=== PATIENT | female | born 1995 | race Caucasian/White ===

== ENCOUNTER 2016-07-29 04:11 | Outpatient (CLI) | payer OTHER | END 2016-07-29 04:12 | disposition home or self-care (01) | LOC: LAB.R 04:11 | PROVIDERS: ATTEND Physician Assistant Medical | DX: J03.90 Acute tonsillitis, unspecified (principal) | CPT/HCPCS: 87070 ==

== ENCOUNTER 2017-07-17 15:42 | Emergency (ER) | payer OTHER ==
[2017-07-17 15:51] VITALS: BP 141/84
[2017-07-17] MEDS ORDERED: DEXAMETHASONE 10 MG/ML VIAL PO STA (16:02)
--- NOTE | 2017-07-17 16:05 | ED Physician Documentation ---
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 She does not recall anything specific that she did overuse her muscles she did help her fianc moved some boxes out about 5 days before this pain started. She fell yesterday the pain was somewhat better today it is worse. She is not having numbness or tingling distally. Review of Systems Constitutional: denies: Fever Eyes: denies: Decreased vision Ears: denies: Drainage/discharge Nose: denies: Congestion Throat: denies: Sore throat Cardiac: denies: Chest pain / pressure Respiratory: denies: Dyspnea, Cough GI: denies: Abdominal Pain, Nausea, Vomiting : denies: Dysuria Skin: denies: Rash Musculoskeletal: reports: Neck pain, Back pain. denies: Extremity pain, Extremity swelling Neurologic: denies: Generalized weakness, Focal weakness PD PAST MEDICAL HISTORY - Past Medical History Past Medical History: Yes Respiratory: Asthma - Past Surgical History Past Surgical History: No - Present Medications Home Medications: Ambulatory Orders Medication Instructions Recorded Confirmed Albuterol Sulf [Ventolin Hfa 0 puffs 07/17/17 Inhaler] Cyclobenzaprine [Flexeril] 10 mg PO TID PRN #20 tablet 07/17/17 HYDROcod/ACETAM 5/325 [[place] 5/325] 1 - 2 ea PO Q6H PRN #15 tablet 07/17/17 - Allergies Allergies/Adverse Reactions: Allergies Allergy/AdvReac Type Severity Reaction Status Date / Time amoxicillin [Amoxicillin] Allergy Hives Verified 07/17/17 15:51 - Social History Does the pt smoke?: No Smoking Status: Never smoker Does the pt drink ETOH?: No Does the pt have substance abuse?: No PD ED PE NORMAL - Vitals Vital signs reviewed: Yes (hypertensive ) - General General: Alert and oriented X 3, No acute distress, Well developed/nourished - HEENT HEENT: Atraumatic, PERRL, EOMI - Neck Neck: Supple, no meningeal sign, No bony TTP, Other (There is pain to the paraspinous muscles over the left T2-4 area. Distal n/v is intact. ) - Respiratory Respiratory: No respiratory distress - Derm Derm: Normal color, Warm and dry, No rash - Extremities Extremities: No deformity, No calf tenderness / cord - Neuro Neuro: No motor deficit, No sensory deficit Eye Opening: Spontaneous Motor: Obeys Commands Verbal: Oriented GCS Score: 15 - Psych Psych: Normal mood, Normal affect Results - Vitals Vitals: Vital Signs - 24 hr 07/17/17 15:45 Temperature 36.4 C L Heart Rate 77 Respiratory 16 Rate Blood Pressure 141/84 H O2 Saturation 100 Oxygen O2 Source Room air PD MEDICAL DECISION MAKING - ED course Complexity details: reviewed results, re-evaluated patient, considered differential, d/w patient, d/w family ED course: 22 y/o female with upper back muscle spasm is administered dexamethasone. Departure - Departure Disposition: 01 Home, Self Care Clinical Impression: Spasm of back muscles Condition: Stable Instructions: ED Spasm Back No Trauma Follow-Up: Sergei Osei DO [Primary Care Provider] - Prescriptions: Cyclobenzaprine [Flexeril] 10 mg PO TID PRN #20 tablet PRN Reason: Spasms HYDROcod/ACETAM 5/325 [[place] 5/325] 1 - 2 ea PO Q6H PRN #15 tablet PRN Reason: Pain
[2017-07-17] MEDS ORDERED: CHERRY SYRUP 10 ML UDC PO ONE (16:21)
== END 2017-07-17 16:17 | disposition home or self-care (01) ==
LOC: ED 15:42
DX: M62.830 Muscle spasm of back (principal); J45.909 Unspecified asthma, uncomplicated
CPT/HCPCS: 99283; A9270

== ENCOUNTER 2017-12-17 08:35 | Outpatient (CLI) | payer OTHER ==
--- NOTE | 2017-12-17 16:17 | Ultrasound Report ---
Reason: ENCTR FOR TEST, RESULT POSITIVE Procedure Date: 12/17/2017 Accession Number: [id number] / [id number] Procedure: US - OB First Trimester CPT Code: FULL RESULT: EXAM: FIRST TRIMESTER OBSTETRIC ULTRASOUND (Less than 11 weeks) EXAM DATE: 12/17/2017 08:44 AM. CLINICAL HISTORY: test, result positive. LMP: 10/07/2017. COMPARISONS: None. TECHNIQUE: Transabdominal and transvaginal ultrasound examination with static image documentation. CLINICAL DATES: EGA 10 weeks 1 day with YULIANA 07/14/2018 based on last menstrual period. ASSESSMENT: Gestational Sac: Single intrauterine. Mean gestational sac diameter: 35.9 mm = 8 weeks 5 days. Embryo: CRL (crown-rump length) 24.8 mm = 9 weeks 2 days. Cardiac activity: 171 beats per minute. Yolk sac: 4.8 mm. Amniotic fluid: Not accurately assessed at this gestational age. Early placenta: Not visible at this gestational age. Other: No perigestational fluid collection demonstrated. MATERNAL STRUCTURES: Uterus: Anteverted. Unremarkable. Cervix: Closed. Right Ovary/Adnexa: The ovary measures 2.3 x 2.2 x 2.1 cm, volume 5.5 cc. A 1.6 cm cystic structure may represent a corpus luteum. Left Ovary/Adnexa: The ovary measures 2.7 x 2.1 x 2.4 cm, volume 7.1 cc. Unremarkable. Free Fluid: None. Other: None. IMPRESSION: 1. Single viable intrauterine at EGA 9 weeks 2 days with YULIANA 07/24/2018 based on crown-rump length, which is concordant with clinical dates. (Above 9 weeks gestation concordance is within 7 days, below 9 weeks up to 5 days difference are allowed by ACOG) 2. Assigned dating is YULIANA 9 weeks 2 days based on current ultrasound. RADIA
== END 2017-12-17 08:36 | disposition home or self-care (01) ==
LOC: DI 08:35
PROVIDERS: ATTEND Obstetrics & Gynecology
DX: Z32.01 Encounter for pregnancy test, result positive (principal); Z3A.09 9 weeks gestation of pregnancy
CPT/HCPCS: 76801

== ENCOUNTER 2017-12-20 08:00 | Outpatient (CLI) | payer OTHER ==
[2017-12-20 14:53] LABS: MUDS CUTOFF CONCENTRATIONS CUTOFF CONC BELOW:
[2017-12-20 15:09] LABS: COCAINE SCREEN URINE NEGATIVE (NEGATIVE); METHAMPHETAMINES SCREEN, URINE NEGATIVE (NEGATIVE)
[2017-12-20 15:10] LABS: AMPHETAMINE SCREEN,URINE NEGATIVE (NEGATIVE); BENZODIAZEPINES SCREEN, URINE NEGATIVE (NEGATIVE); METHADONE SCREEN, URINE NEGATIVE (NEGATIVE); OPIATE SCREEN, URINE NEGATIVE (NEGATIVE); OXYCODONE SCREEN, URINE NEGATIVE (NEGATIVE); PROPOXYPHENE SCREEN, URINE NEGATIVE (NEGATIVE); TRICYCLIC ANTIDEPRESSANT,URINE NEGATIVE (NEGATIVE)
== END 2017-12-20 08:01 | disposition home or self-care (01) ==
LOC: LAB.R 08:00
PROVIDERS: ATTEND Nurse Practitioner Obstetrics & Gynecology
DX: Z36.9 Encounter for antenatal screening, unspecified (principal)
CPT/HCPCS: 80306; 87491; 87591

== ENCOUNTER 2017-12-20 10:56 | Outpatient (CLI) | payer OTHER ==
[2017-12-20 11:31] LABS: BASOPHILS % (AUTO) 0.1 %; EOSINOPHILS % (AUTO) 0.2 %; HGB - HEMOGLOBIN 13.7 g/dL (12.0-16.0); LYMPHOCYTES # (AUTO) 1.9 10^3/uL (1.5-3.5); LYMPHOCYTES % (AUTO) 14.8 %; MEAN CORPUSCULAR HEMOGLOBIN 30.1 pg (27.0-31.0); MEAN CORPUSCULAR HGB CONC 34.6 g/dL (32.0-36.0); MEAN CORPUSCULAR VOLUME 86.8 fL (81.0-99.0); MEAN PLATELET VOLUME 8.4 fL (7.9-10.8); MONOCYTES # (AUTO) 0.7 10^3/uL (0.0-1.0); MONOCYTES % (AUTO) 5.1 %; NEUTROPHILS # (AUTO) 10.3 10^3/uL (1.5-6.6); NEUTROPHILS % (AUTO) 79.8 %; PLT - PLATELET COUNT 343 10^3/uL (130-450); RED BLOOD COUNT 4.55 10^6/uL (4.20-5.40); WHITE BLOOD COUNT 12.9 x10^3/uL (4.8-10.8)
[2017-12-20 11:43] LABS: BILIRUBIN,URINE NEGATIVE (NEGATIVE); GLUCOSE, URINE (UA) NEGATIVE (NEGATIVE); KETONES,URINE (UA) NEGATIVE (NEGATIVE); LEUKOCYTE ESTERASE, URINE NEGATIVE (NEGATIVE); NITRITE,URINE NEGATIVE (NEGATIVE); OCCULT BLOOD,URINE NEGATIVE (NEGATIVE); PROTEIN,URINE NEGATIVE (NEGATIVE); UROBILINOGEN,URINE 0.2 (NORMAL) E.U./dL (NORMAL)
[2017-12-20 11:45] LABS: CLARITY,URINE CLEAR (CLEAR)
[2017-12-20 11:46] LABS: HB2 TOTAL 14.6 g/dL; HEMOGLOBIN A1C 0.48 g/dL; HEMOGLOBIN A1C % 5.2 % (4.6-6.2)
[2017-12-20 11:59] LABS: BACTERIA,URINE Rare /HPF (None Seen); RBC,URINE 0-5 /HPF (0-5); SQUAMOUS EPITHELIAL CELL,UR RARE Squamous (<= Few)
[2017-12-21 13:40] LABS: HEPATITIS C ANTIBODY NON-REACTIVE (NON-REACTIVE)
[2017-12-21 14:46] LABS: HIV AG/AB 4TH GEN NON-REACTIVE (NON-REACTIVE)
[2017-12-21 15:02] LABS: HEPATITIS B SURFACE ANTIGEN NON-REACTIVE (NON-REACTIVE)
== END 2017-12-20 10:57 | disposition home or self-care (01) ==
LOC: LAB 10:56
PROVIDERS: ATTEND Nurse Practitioner Obstetrics & Gynecology
DX: Z36.9 Encounter for antenatal screening, unspecified (principal)
CPT/HCPCS: 36415; 80306; 81001; 81599; 83036; 85025; 86592; 86762; 86803; 86850; 86900; 86901; 87340; 87389; 87491; 87591

== ENCOUNTER 2018-01-22 14:40 | Outpatient (CLI) | payer OTHER ==
[2018-01-22 15:57] LABS: TOTAL PROTEIN,URINE TIMED 7 mg/dL
[2018-01-22 15:59] LABS: TOTAL PROTEIN 24HR,URINE 88 mg/24hr (40-150); TOTAL VOLUME 24HRS,URINE 1250 mL
[2018-01-22 16:12] LABS: ALBUMIN 3.7 g/dL (3.2-5.5); ALBUMIN/GLOBULIN RATIO 1.1 (1.0-2.2); BILIRUBIN,TOTAL 0.5 mg/dL (0.2-1.0); CALCIUM 8.8 mg/dL (8.5-10.3); CREATININE 0.7 mg/dL (0.4-1.0)
== END 2018-01-22 14:41 | disposition home or self-care (01) ==
LOC: LAB 14:40
PROVIDERS: ATTEND Registered Nurse
DX: O99.212 Obesity complicating pregnancy, second trimester (principal)
CPT/HCPCS: 80053; 82950; 84156

== ENCOUNTER 2018-02-21 12:41 | Outpatient (CLI) | payer OTHER ==
--- NOTE | 2018-02-22 08:39 | Ultrasound Report ---
Reason: ENCOUNTER FOR SUPRVSN OF NORMAL Procedure Date: 02/21/2018 Accession Number: [id number] / [id number] Procedure: US - OB Detailed Eval CPT Code: FULL RESULT: EXAM: COMPLETE OBSTETRICAL ULTRASOUND, ANATOMIC SURVEY, TRANSABDOMINAL SCANNING ONLY EXAM DATE: 02/21/2018 02:46 PM. CLINICAL HISTORY: anatomic survey in a 22-year-old female, 19 weeks 4 days by clinical dates. COMPARISON: 12/17/2017. TECHNIQUE: Real-time transabdominal sonographic evaluation of the fetus performed by the web database developer. Multiple sales representative rural power static images were saved for review. DATING: Established EGA 19 weeks 4 days with YULIANA 07/14/2018 based on clinical dates. EGA 19 weeks 1 day by current ultrasound. GENERAL EVALUATION Sams . Cardiac activity: 150 bpm. movement: Visualized. Presentation: Cephalic. Placenta: Posterior position. No evidence for previa. Umbilical cord: 3 vessel cord. Central placental cord origin. Amniotic fluid: Subjectively normal. MVP 3.7 cm, GEN 12.0 cm. BIOMETRY Bi-Parietal Diameter (BPD): 4.5 cm, 19 weeks 4 days Head Circumference (HC): 16.3 cm, 19 weeks 1 day Abdominal Circumference (AC): 13.9 cm, 19 weeks 2 days Femur Length (FL): 2.9 cm, 18 weeks 5 days Estimated Weight: 273 g, 22nd percentile for clinical dates. ANATOMY The intracranial structures, profile, face, spine, 4 chamber heart and outflow tracts, stomach, abdominal wall and cord insertion, diaphragm, kidneys, bladder, and extremities were visualized and demonstrate no abnormality. Nose and lips inadequately demonstrated secondary to position. MATERNAL STRUCTURES Uterus: Unremarkable. Cervix: Long and closed. Transabdominal length 5.2 cm. Right ovary/adnexa: Unremarkable. Left ovary/adnexa: Unremarkable. Free fluid: None. IMPRESSION: Single living intrauterine fetus currently in cephalic presentation, 19 weeks 1 day by current ultrasound, correlates well with clinical dates of 19 weeks 4 days. Normal amount of amniotic fluid. Posterior placenta without previa. Inadequate evaluation of nose and lips due to position. Limited follow-up OB ultrasound recommended in 1-2 weeks, for completion of anatomic survey. Remainder of anatomy normal. No anomalies noted. RADIA
== END 2018-02-21 12:42 | disposition home or self-care (01) ==
LOC: DI 12:41
PROVIDERS: ATTEND Registered Nurse
DX: Z34.82 Encounter for supervision of other normal pregnancy, second trimester (principal)
CPT/HCPCS: 76811

== ENCOUNTER 2018-02-24 07:59 | Outpatient (CLI) | payer OTHER | END 2018-02-24 08:00 | disposition home or self-care (01) | LOC: LAB 07:59 | PROVIDERS: ATTEND Nurse Practitioner Obstetrics & Gynecology | DX: Z36.89 Encounter for other specified antenatal screening (principal) | CPT/HCPCS: 36415; 82951; 82952 ==

== ENCOUNTER 2018-03-03 05:36 | Emergency (ER) | payer OTHER ==
[2018-03-03] MEDS ORDERED: ONDANSETRON 4 MG/2 ML VIAL IVP STA (06:09)
--- NOTE | 2018-03-03 06:56 | ED Physician Documentation ---
PD HPI NVD - Stated complaint Stated Complaint: FLU LIKE SYMPTOMS - Chief complaint Chief Complaint: General - History obtained from History obtained from: Patient, Family - History of Present Illness Timing - onset: Enter time (0000), Today Timing - duration: Hours Timing - details: Abrupt onset, Still present Associated symptoms: Abdominal pain Contributing factors: Other (recent power outage and works at the [employer] [place] Improved by: Vomiting, BM Similar symptoms before: Has not had sx before Recently seen: Not recently seen - Additonal information Additional information: Previously well 22-year-old female who is 20 weeks has developed acute nausea and vomiting about midnight last night. She did not have any type of problem with morning sickness during her . There is recently been a power outage and suspicion for spoiled food is high. The patient and her both ate similar foods and on review of their intake specific items are not discovered that would be likely culprits. The patient does work at the [employer] [place] and she does not know of children there that have been sick recently. She does state that the last thing she ate was leftover pot roast that was frozen Review of Systems Constitutional: reports: Chills, Myalgias. denies: Fever Eyes: denies: Decreased vision Ears: denies: Ear pain Nose: denies: Rhinorrhea / runny nose, Congestion Throat: denies: Sore throat Cardiac: denies: Chest pain / pressure, Palpitations Respiratory: denies: Dyspnea, Cough GI: reports: Abdominal Pain, Nausea, Vomiting, Diarrhea : denies: Dysuria, Frequency Skin: denies: Rash Musculoskeletal: denies: Neck pain, Back pain, Extremity pain Neurologic: denies: Generalized weakness, Focal weakness, Numbness PD PAST MEDICAL HISTORY - Past Medical History Respiratory: Asthma - Past Surgical History Past Surgical History: No - Present Medications Home Medications: Ambulatory Orders Medication Instructions Recorded Confirmed Albuterol Sulf [Ventolin Hfa 0 puffs 07/17/17 Inhaler] Cyclobenzaprine [Flexeril] 10 mg PO TID PRN #20 tablet 07/17/17 HYDROcod/ACETAM 5/325 [[place] 5/325] 1 - 2 ea PO Q6H PRN #15 tablet 07/17/17 Ondansetron Odt [Zofran] 4 mg TL Q6H PRN #10 tablet 03/03/18 - Allergies Allergies/Adverse Reactions: Allergies Allergy/AdvReac Type Severity Reaction Status Date / Time amoxicillin [Amoxicillin] Allergy Hives Verified 07/17/17 15:51 - Social History Does the pt smoke?: No Smoking Status: Never smoker Does the pt drink ETOH?: No Does the pt have substance abuse?: No PD ED PE NORMAL - Vitals Vital signs reviewed: Yes (normal ) - General General: Alert and oriented X 3, No acute distress, Well developed/nourished - HEENT HEENT: Atraumatic, PERRL, EOMI - Neck Neck: Supple, no meningeal sign, No bony TTP - Cardiac Cardiac: RRR, No murmur - Respiratory Respiratory: No respiratory distress, Clear bilaterally - Abdomen Abdomen: Soft, Non tender, Other (gravid uterus to the umbilcus) - Back Back: No CVA TTP, No spinal TTP - Derm Derm: Normal color, Warm and dry, No rash - Extremities Extremities: No deformity, No edema - Neuro Neuro: Alert and oriented X 3, chiseler head 2-12 intact, No motor deficit, No sensory deficit, Normal speech Eye Opening: Spontaneous Motor: Obeys Commands Verbal: Oriented GCS Score: 15 - Psych Psych: Normal mood, Normal affect Results - Vitals Vitals: Vital Signs - 24 hr 03/03/18 05:42 Temperature 98.1 C H Heart Rate 80 Respiratory 18 Rate Blood Pressure 119/66 O2 Saturation 97 Oxygen O2 Source Room air Procedures - IVC sono (time) 0640 Bedside IVC sono: IVC measures (cm) (1.6), Euvolemia (after one liter in) PD MEDICAL DECISION MAKING - ED course Complexity details: reviewed results, re-evaluated patient, considered differential, d/w patient, d/w family ED course: 22-year-old female with a acute onset of nausea and vomiting has suspicion for food poisoning as her symptoms came on very rapidly and violently. Her symptoms are mostly resolved now she has received a liter of saline and 4 mg of Zofran in the emergency department and on interrogation of her inferior vena cava following treatment she is euvolemic. The fetus is active on bedside ultrasound. Departure - Departure Disposition: 01 Home, Self Care Clinical Impression: Food poisoning Qualifiers: Encounter type: initial encounter Injury intent: accidental or unintentional Qualified Code(s): T62.91XA - Toxic effect of unspecified noxious substance eaten as food, accidental (unintentional), initial encounter Condition: Stable Instructions: ED Gastroenteritis Vs Food Poison Follow-Up: Sergei Osei DO [Provider Admit Priv/Credential] - [facility] [Provider Group] Prescriptions: Ondansetron Odt [Zofran] 4 mg TL Q6H PRN #10 tablet PRN Reason: Nausea / Vomiting Forms: Activity restrictions
[2018-03-03 07:13] VITALS: BP 126/85
== END 2018-03-03 07:13 | disposition home or self-care (01) ==
LOC: ED 05:36
DX: O26.892 Other specified pregnancy related conditions, second trimester (principal); Z3A.20 20 weeks gestation of pregnancy; T62.91XA Toxic effect of unspecified noxious substance eaten as food, accidental (unintentional), initial encounter
CPT/HCPCS: 36415; 96374; 99283

== ENCOUNTER 2018-03-09 07:53 | Outpatient (CLI) | payer OTHER, BC | END 2018-03-09 07:54 | disposition home or self-care (01) | LOC: LAB 07:53 | PROVIDERS: ATTEND Registered Nurse | DX: O99.210 Obesity complicating pregnancy, unspecified trimester (principal) | CPT/HCPCS: 36415; 82951; 82952 ==

== ENCOUNTER 2018-04-04 09:16 | Outpatient (CLI) | payer OTHER, BC ==
--- NOTE | 2018-04-04 12:28 | Ultrasound Report ---
Reason: ,COMPLETION OF FAS Procedure Date: 04/04/2018 Accession Number: [id number] / [id number] Procedure: US - OB F/U or Repeat CPT Code: FULL RESULT: EXAM: FOLLOW-UP OBSTETRICAL ULTRASOUND EXAM DATE: 04/04/2018 09:57 AM. CLINICAL HISTORY: , completion of FAS. COMPARISON: 02/21/2018. TECHNIQUE: Real-time sonographic evaluation of the fetus performed by the machine set up operator paper goods. Multiple national sales representative static images were saved for review. DATING: Established EGA 25 weeks 4 days with YULIANA 07/14/2018 based on LMP. EGA 25 weeks 2 days with YULIANA 07/24/2018 based on first ultrasound. EGA 24 weeks 5 days with YULIANA 07/20/2018 based on the current ultrasound. GENERAL EVALUATION Sams . Cardiac activity: 146 bpm. movement: Visualized. Presentation: Cephalic. Placenta: Posterior position. Amniotic fluid: Normal. GEN 15.2 cm. MVP 4.6 cm. BIOMETRY Bi-Parietal Diameter (BPD): 6.3 cm, 25 weeks 4 days Head Circumference (HC): 23.1 cm, 25 weeks 0 days Abdominal Circumference (AC): 19.9 cm, 24 weeks 3 days Femur Length (FL): 4.3 cm, 23 weeks 6 days Estimated Weight: 697 g, 29th percentile for 25 weeks 4 days. ANATOMY The nose and lips were adequately visualized and are normal. IMPRESSION: 1. Sams live intrauterine with gestational age 25 weeks 4 days based on LMP. 2. Estimated weight is within expected limits for assigned dating. 3. Normal interval growth compared to date of prior biometry. 4. Normal completion of the anatomy survey. RADIA
== END 2018-04-04 09:17 | disposition home or self-care (01) ==
LOC: DI 09:16
PROVIDERS: ATTEND Registered Nurse
DX: Z36.89 Encounter for other specified antenatal screening (principal); Z3A.25 25 weeks gestation of pregnancy
CPT/HCPCS: 76816

== ENCOUNTER 2018-04-19 08:00 | Outpatient (CLI) | payer OTHER, BC ==
[2018-04-19 19:55] LABS: HGB - HEMOGLOBIN 12.7 g/dL (12.0-16.0); MEAN CORPUSCULAR HEMOGLOBIN 31.7 pg (27.0-31.0); MEAN CORPUSCULAR HGB CONC 35.2 g/dL (32.0-36.0); RED CELL DISTRIBUTION WIDTH 13.8 % (12.0-15.0); WHITE BLOOD COUNT 14.5 x10^3/uL (4.8-10.8)
== END 2018-04-19 23:59 | disposition home or self-care (01) ==
LOC: LAB.N 08:00
PROVIDERS: ATTEND Nurse Practitioner Obstetrics & Gynecology
DX: Z36.89 Encounter for other specified antenatal screening (principal)
CPT/HCPCS: 36415; 82950; 85025; 85027; 86850

== ENCOUNTER 2018-06-06 09:56 | Outpatient (CLI) | payer OTHER, BC ==
[2018-06-06 10:18] LABS: BASOPHILS % (AUTO) 0.3 %; EOSINOPHILS % (AUTO) 0.3 %; HGB - HEMOGLOBIN 12.1 g/dL (12.0-16.0); LYMPHOCYTES # (AUTO) 2.4 10^3/uL (1.5-3.5); LYMPHOCYTES % (AUTO) 19.8 %; MEAN CORPUSCULAR HGB CONC 34.6 g/dL (32.0-36.0); MEAN CORPUSCULAR VOLUME 86.6 fL (81.0-99.0); MEAN PLATELET VOLUME 8.8 fL (7.9-10.8); MONOCYTES # (AUTO) 1.1 10^3/uL (0.0-1.0); MONOCYTES % (AUTO) 9.3 %; NEUTROPHILS # (AUTO) 8.5 10^3/uL (1.5-6.6); NEUTROPHILS % (AUTO) 70.3 %; PLT - PLATELET COUNT 318 10^3/uL (130-450); RED BLOOD COUNT 4.05 10^6/uL (4.20-5.40); RED CELL DISTRIBUTION WIDTH 12.8 % (12.0-15.0); WHITE BLOOD COUNT 12.1 x10^3/uL (4.8-10.8)
== END 2018-06-06 09:57 | disposition home or self-care (01) ==
LOC: LAB 09:56
PROVIDERS: ATTEND Registered Nurse
DX: R04.0 Epistaxis (principal)
CPT/HCPCS: 36415; 85025

== ENCOUNTER 2018-06-16 08:00 | Outpatient (CLI) | payer OTHER, BC | END 2018-06-16 23:59 | disposition home or self-care (01) | LOC: LAB.R 08:00 | PROVIDERS: ATTEND Nurse Practitioner Obstetrics & Gynecology | DX: Z34.90 Encounter for supervision of normal pregnancy, unspecified, unspecified trimester (principal) | CPT/HCPCS: 87491; 87591; 87797 ==

== ENCOUNTER 2018-06-21 17:00 | Outpatient (CLI) | payer OTHER, BC ==
[2018-06-22 13:36] LABS: HEPATITIS C ANTIBODY NON-REACTIVE (NON-REACTIVE)
[2018-06-22 15:27] LABS: HIV AG/AB 4TH GEN NON-REACTIVE (NON-REACTIVE)
[2018-06-23 10:46] LABS: HSV 1 IGG TYPE SPECIFIC AB 4.12 index; HSV 2 IGG TYPE SPECIFIC AB <0.90 index
== END 2018-06-21 17:01 | disposition home or self-care (01) ==
LOC: LAB 17:00
PROVIDERS: ATTEND Nurse Practitioner Obstetrics & Gynecology
DX: Z34.90 Encounter for supervision of normal pregnancy, unspecified, unspecified trimester (principal)
CPT/HCPCS: 36415; 81599; 86592; 86695; 86696; 86803; 87389

== ENCOUNTER 2018-07-04 08:41 | Outpatient (CLI) | payer OTHER, BC ==
[2018-07-04 09:01] LABS: HGB - HEMOGLOBIN 12.1 g/dL (12.0-16.0); MEAN CORPUSCULAR HEMOGLOBIN 29.2 pg (27.0-31.0); MEAN CORPUSCULAR HGB CONC 34.2 g/dL (32.0-36.0); MEAN CORPUSCULAR VOLUME 85.4 fL (81.0-99.0); MEAN PLATELET VOLUME 10.1 fL (7.9-10.8); RED BLOOD COUNT 4.16 10^6/uL (4.20-5.40); WHITE BLOOD COUNT 12.3 x10^3/uL (4.8-10.8)
[2018-07-04 09:13] LABS: ALBUMIN 2.8 g/dL (3.2-5.5); ALBUMIN/GLOBULIN RATIO 0.7 (1.0-2.2); BILIRUBIN,TOTAL 0.4 mg/dL (0.2-1.0); CALCIUM 8.8 mg/dL (8.5-10.3); TOTAL PROTEIN 6.7 g/dL (6.7-8.2); URIC ACID 6.2 mg/dL (2.6-7.2)
[2018-07-04 09:16] LABS: CREATININE,URINE 281.6 mg/dL; PROTEIN/CREATININE RATIO,URINE 0.3 (<=0.2)
== END 2018-07-04 08:42 | disposition home or self-care (01) ==
LOC: LAB 08:41
PROVIDERS: ATTEND Nurse Practitioner Obstetrics & Gynecology
DX: R19.8 Other specified symptoms and signs involving the digestive system and abdomen (principal)
CPT/HCPCS: 36415; 80053; 82570; 84156; 84550; 85027

== ENCOUNTER 2018-07-05 07:41 | Inpatient (IN) | payer OTHER, BC ==
[2018-07-05] MEDS ORDERED: ONDANSETRON 4 MG/2 ML VIAL IVP PRN (07:46)
[2018-07-05] MEDS ORDERED: SODIUM CHLORIDE FLUSH 0.9% 10 ML SYRINGE IVP PRN (07:46)
[2018-07-05] MEDS ORDERED: LIDOCAINE-MPF 1% 30 ML VIAL ONE (07:55)
[2018-07-05] MEDS ORDERED: miSOPROStol 200 MCG TABLET ONE (07:55)
[2018-07-05] MEDS ORDERED: SODIUM CHLORIDE FLUSH 0.9% 10 ML SYRINGE ONE (07:56)
[2018-07-05] MEDS ORDERED: OXYTOCIN/SODIUM CHLORIDE 500 ML IV ONE (07:56)
[2018-07-05] MEDS ORDERED: LACTATED RINGERS 1,000 ML IV ONE (07:56)
[2018-07-05] MEDS ORDERED: LACTATED RINGERS 1,000 ML IV SCH (08:00)
[2018-07-05] MEDS: miSOPROStol 100 MCG TABLET BC SCH ×4 (08:42→23:02)
[2018-07-05 08:47] LABS: BASOPHILS % (AUTO) 0.4 %; EOSINOPHILS % (AUTO) 0.3 %; HGB - HEMOGLOBIN 11.9 g/dL (12.0-16.0); LYMPHOCYTES # (AUTO) 2.8 10^3/uL (1.5-3.5); LYMPHOCYTES % (AUTO) 28.5 %; MEAN CORPUSCULAR HEMOGLOBIN 28.9 pg (27.0-31.0); MEAN CORPUSCULAR HGB CONC 33.7 g/dL (32.0-36.0); MEAN CORPUSCULAR VOLUME 85.8 fL (81.0-99.0); MEAN PLATELET VOLUME 10.5 fL (7.9-10.8); MONOCYTES # (AUTO) 0.9 10^3/uL (0.0-1.0); MONOCYTES % (AUTO) 8.9 %; NEUTROPHILS % (AUTO) 61.9 %; PLT - PLATELET COUNT 294 10^3/uL (130-450); RED BLOOD COUNT 4.11 10^6/uL (4.20-5.40); WHITE BLOOD COUNT 9.7 x10^3/uL (4.8-10.8)
[2018-07-05 09:09] LABS: URIC ACID 6.5 mg/dL (2.6-7.2)
--- NOTE | 2018-07-05 09:17 | HISTORY & PHYSICAL EXAMINATION ---
Admit History - Visit Reason Visit Reason: Other - : 1 Parity: 0 Premature: 0 Ectopic: 0 : 0 Care: positive: [facility] Risk/History: positive: None Complications This : positive: None Smoking Status: Never smoker - Mother's Labs Mother's Blood Type: positive: O Mother's RH: positive: Positive GBS: positive: Group B Step Negative Rubella Status: positive: Non-immune Meds/Allgy - Home Medications Home Medications: Ambulatory Orders Medication Instructions Recorded Confirmed Albuterol Sulf [Ventolin Hfa 0 puffs 07/17/17 Inhaler] Cyclobenzaprine [Flexeril] 10 mg PO TID PRN #20 tablet 07/17/17 HYDROcod/ACETAM 5/325 [[place] 5/325] 1 - 2 ea PO Q6H PRN #15 tablet 07/17/17 Ondansetron Odt [Zofran] 4 mg TL Q6H PRN #10 tablet 03/03/18 - Allergies Allergies/Adverse Reactions: Allergies Allergy/AdvReac Type Severity Reaction Status Date / Time amoxicillin [Amoxicillin] Allergy Hives Verified 07/17/17 15:51 Review of Systems - Constitutional Constitutional: reports: Fatigue, Fever - Eyes Eyes: reports: Blurred vision, Spots in vision, Dipolpia - Cardiovascular Cariovascular: reports: Chest pain, Edema - Respiratory Respiratory: reports: Cough, Wheezing, SOB at rest - Gastrointestinal Gastrointestinal: reports: Abdominal pain, Change in bowel habits, Nausea, Vomiting - Integumentary Integumentary: reports: Rash, Pruritis - Neurological Neurological: reports: Headache, Dizziness - Psychiatric Psychiatric: reports: Depression, Anxiety Physical - Abdominal Exam Vital Signs: Temp Pulse Resp BP Pulse Ox 36.6 C 79 16 142/88 H 07/05/18 07:47 07/05/18 07:47 07/05/18 07:47 07/05/18 07:47 Contraction Frequency (min/apart): none - Monitoring Heart Rate Baseline: 140 Strip Review: positive: Category I - Presentation Presentation: positive: Vertex - Vaginal Exam Membranes: positive: Membranes intact - Speculum Exam Speculum Exam Performed: positive: No Plan for Labor - Plan For Labor I expect patient to be DC'd or transferred within 96 hours.: Yes Plan for Labor: HPI: This 23yo @ 39.5wks gestation by L=9.2wk U/S presents to [facility] for medical IOL secondary to mildly elevated BP for the past several weeks in the clinic setting, in combination with her recent 2+ protein in her urine. Proteinuria in combination with mildly elevated BP, elevated protein/creatinine ratio (0.3) and elevated AST (48), warrant medically indicated induction of labor. She has been a patient of [facility] through the duration of her . Her has remained uncomplicated with the exception of obesity. She had a normal early 3 hour GTT and normal baseline PIH panel. Her 28wk 1 hour GTT was WNL. Cervical examination was deferred upon arrival secondary to no uterine contractions. Pt denies FRAZIER, visual disturbances, RUQ or epigastric pain. No edema. She denies VB, Lof, or contractions. Reports +FM. Dating criteria: LMP: 10/07/2017 Initial Ultrasound: 12/17/2018 @ 9.2wks - agrees Serial Exams - agree PMHx: Exercise-induced asthma Surgical hx: none Social Hx: Never smoker, No ETOH or IVDA. Family Hx: Diabetes - maternal grandmother, maternal grandfather Physical Exam: Normocephalic, atruamatic PERRLA Mood is good Heart RRR w/o M/G/R Lungs CTAB Abdomen gravid, soft, nontender Bilateral LE's no edema Assessment: 23yo @ 39.5wks gestation BP 07/04/2018 130s/80s --> 07/05/2018 142/88 on admission + proteinuria, Protein/creatinine ratio 0.3, AST 07/04/2018 48 --> 07/05/2018 53; PLT 07/04/2018 312--> 07/05/2018 294 Plan: Observation status for pre-induction cervical ripening with 50mcg BC misoprostol q 4 hrs Serial BPs Repeat PIH labs q 12 hours to monitor for declining condition Continuous monitoring Patient status and plan of care reviewed with precision farming specialist SERVICES EXECUTIVE Dr. Almanza whom is in agreement with plan. Will continue to keep precision farming specialist physician updated and plan transfer to physician care if patient's condition worsens/progresses. Patient, family, and OB RN present for induction consent and discussion of plan care. They are all in agreement and deny further questions or concerns at this time.
[2018-07-05 10:08] LABS: CREATININE,URINE 129.8 mg/dL; PROTEIN/CREATININE RATIO,URINE 0.3 (<=0.2)
--- NOTE | 2018-07-05 10:32 | PROVIDER PROGRESS NOTE ---
Subjective - Subjective Subjective: Reviewed deteriorating clinical status including elevated BPs 140s/90s in combination with elevating LFTs with Dr. Almanza who accepts transfer of care to physician practice secondary to confirmed diagnosis of preeclampsia. Reviewed plan of care with patient her family at the bedside, in addition L&D RNs who are in agreement to transfer of care to physicians and will direct further plan of care decision to Dr. Almanza. Objective - Vital Signs/Intake & Output Vital Signs: Vital Signs x48h Temp Pulse Resp BP 07/05/18 07:47 36.6 C 79 16 142/88 H - Lab Results Fish Bones: 07/05/18 08:15 Other Labs: Lab Results x24hrs 07/05/18 07/05/18 07/05/18 Range/Units 09:50 08:15 08:15 WBC 9.7 (4.8-10.8) x10^3/uL RBC 4.11 L (4.20-5.40) 10^6/uL Hgb 11.9 L (12.0-16.0) g/dL Hct 35.3 L (37.0-47.0) % MCV 85.8 (81.0-99.0) fL MCH 28.9 (27.0-31.0) pg MCHC 33.7 (32.0-36.0) g/dL RDW 13.0 (12.0-15.0) % Plt Count 294 (130-450) 10^3/uL MPV 10.5 (7.9-10.8) fL Neut # (Auto) 6.0 (1.5-6.6) 10^3/uL Lymph # (Auto) 2.8 (1.5-3.5) 10^3/uL Dolores # (Auto) 0.9 (0.0-1.0) 10^3/uL Eos # (Auto) 0.0 (0.0-0.7) 10^3/uL Baso # (Auto) 0.0 (0.0-0.1) 10^3/uL Absolute Nucleated RBC 0.00 x10^3/uL Nucleated RBC % 0.0 /100WBC Uric Acid 6.5 (2.6-7.2) mg/dL AST 53 H (10-42) IU/L Lactate Dehydrogenase (91-225) IU/L Urine Creatinine 129.8 mg/dL Ur Total Protein Timed 35 mg/dL Protein/Creatinin Ratio 0.3 H (<=0.2) 07/05/18 Range/Units 08:15 WBC (4.8-10.8) x10^3/uL RBC (4.20-5.40) 10^6/uL Hgb (12.0-16.0) g/dL Hct (37.0-47.0) % MCV (81.0-99.0) fL MCH (27.0-31.0) pg MCHC (32.0-36.0) g/dL RDW (12.0-15.0) % Plt Count (130-450) 10^3/uL MPV (7.9-10.8) fL Neut # (Auto) (1.5-6.6) 10^3/uL Lymph # (Auto) (1.5-3.5) 10^3/uL Dolores # (Auto) (0.0-1.0) 10^3/uL Eos # (Auto) (0.0-0.7) 10^3/uL Baso # (Auto) (0.0-0.1) 10^3/uL Absolute Nucleated RBC x10^3/uL Nucleated RBC % /100WBC Uric Acid (2.6-7.2) mg/dL AST (10-42) IU/L Lactate Dehydrogenase 194 (91-225) IU/L Urine Creatinine mg/dL Ur Total Protein Timed mg/dL Protein/Creatinin Ratio (<=0.2)
--- NOTE | 2018-07-05 17:25 | PROVIDER PROGRESS NOTE ---
Labor Progress Note - Uterine Monitoring Contraction Frequency (min/apart): 2 Contraction Intensity: positive: Mild - Monitoring Monitor Mode: positive: External ultrasound Heart Rate Baseline: 135 Heart Rate Variability: positive: Moderate (6-25 bmp) Accelerations: positive: Present, 15x15 Decelerations: positive: None Strip Review: positive: Category I - Vaginal Exam Dilation (in cm): 2 Effacement (%): 25 Station: -3 Cervical Position: Midposition - Labor Progress Note Labor Progress Note/Additional Text: Mild PrE continue with cx ripeninig
--- NOTE | 2018-07-05 17:48 | PREOP HISTORY & PHYSICAL ---
DATE OF SERVICE: 07/05/2018 Physician: Tomás Almanza MD IDENTIFICATION: Patient is a 23-year-old G1, P0 female, who is 38.5 weeks' gestation utilizing a 9-week ultrasound. She has had [facility] care [facility]. CHIEF COMPLAINT: Mild blood pressure elevation. HISTORY OF PRESENT ILLNESS: Patient states, in the past several weeks, she is noted to have increasing systolic and diastolic. She is also noted to have 2+ proteinuria. Blood pressures were noted to be 140s/90s. She had labs drawn, at which time, she was noted to have a protein-creatinine ratio of 0.3. Uric acid was 6.5. AST was elevated at 5.3. Platelets were normal at 295. For this reason, she has been brought to Labor and Delivery for evaluation and probable cervical ripening. She denies any family history of preeclampsia, both maternal or sisters. She is the oldest of daughters. PAST MEDICAL HISTORY: Patient denies any hypertensive, diabetic, cardiac, or pulmonary disease. She does have asthma. PAST SURGICAL HISTORY: [place] teeth. ALLERGIES: PENICILLIN. CURRENT MEDICATIONS: Albuterol p.r.n. HABITS: Patient denies use of alcohol, tobacco, street or addictive drugs, or THC. SOCIAL HISTORY: Patient is currently engaged to be . FAMILY HISTORY: Positive for diabetes. Denies any hypertension or preeclampsia. REVIEW OF SYSTEMS: Negative. She denies any headache, spots in front of her eyes, or reflux. PHYSICAL EXAMINATION GENERAL: Well-developed, well-nourished, white female in no acute distress at this time. HEENT: Pupils equal and round. Extraocular muscles are intact. NECK: Thyroid is not palpably enlarged. HEART: Regular rate and rhythm without murmurs. LUNGS: Lewis are clear without rales or wheezes. ABDOMEN: Soft, gravid, nontender. BACK: No spinal or CVA tenderness noted. PELVIC: Examination was just now performed after utilizing Cytotec. She is noted to have a cervix, which is 2 cm; however, it is still long, maybe 25% effaced, vertex -3. EXTREMITIES: DTRs are noted to be brisk and 3+. IMPRESSION: A 23-year-old primigravida with 38.5-week gestation, whose blood pressures, for the most part, are running in the 120s-150s, diastolics are running in the 80s. PLAN: We will cervical ripen with Cytotec. We will treat blood pressures as indicated. We will start working toward delivery. TD: 07/05/2018 17:25 IRAM
[2018-07-05 20:39] LABS: BASOPHILS # (AUTO) 0.1 10^3/uL (0.0-0.1); BASOPHILS % (AUTO) 0.6 %; EOSINOPHILS # (AUTO) 0.1 10^3/uL (0.0-0.7); EOSINOPHILS % (AUTO) 0.4 %; HGB - HEMOGLOBIN 12.2 g/dL (12.0-16.0); LYMPHOCYTES # (AUTO) 2.8 10^3/uL (1.5-3.5); LYMPHOCYTES % (AUTO) 24.5 %; MEAN CORPUSCULAR HEMOGLOBIN 28.6 pg (27.0-31.0); MEAN CORPUSCULAR HGB CONC 33.4 g/dL (32.0-36.0); MEAN CORPUSCULAR VOLUME 85.7 fL (81.0-99.0); MEAN PLATELET VOLUME 10.5 fL (7.9-10.8); MONOCYTES # (AUTO) 1.1 10^3/uL (0.0-1.0); MONOCYTES % (AUTO) 9.9 %; NEUTROPHILS # (AUTO) 7.2 10^3/uL (1.5-6.6); NEUTROPHILS % (AUTO) 64.6 %; PLT - PLATELET COUNT 304 10^3/uL (130-450); RED BLOOD COUNT 4.25 10^6/uL (4.20-5.40); RED CELL DISTRIBUTION WIDTH 12.9 % (12.0-15.0); WHITE BLOOD COUNT 11.2 x10^3/uL (4.8-10.8)
[2018-07-05 21:05] LABS: CREATININE,URINE 39.5 mg/dL; PROTEIN/CREATININE RATIO,URINE 0.3 (<=0.2)
[2018-07-05 21:05] LABS: ALBUMIN/GLOBULIN RATIO 0.7 (1.0-2.2); BILIRUBIN,TOTAL 0.7 mg/dL (0.2-1.0); CALCIUM 8.8 mg/dL (8.5-10.3); CREATININE 0.9 mg/dL (0.4-1.0); TOTAL PROTEIN 7.1 g/dL (6.7-8.2); URIC ACID 6.3 mg/dL (2.6-7.2)
[2018-07-06] MEDS ORDERED: fentaNYL 100 MCG/2 ML VIAL IVP ONE (04:01)
[2018-07-06] MEDS: SODIUM CHLORIDE FLUSH 0.9% 10 ML SYRINGE IVP SCH ×2 (04:12→20:18)
[2018-07-06] MEDS ORDERED: OXYTOCIN/SODIUM CHLORIDE 500 ML IV ONE (05:04)
--- NOTE | 2018-07-06 06:44 | ANESTHESIA ---
Pre-Anesthesia VS, & Labs - Diagnosis term labor, IUP - Procedure vaginal delivery Vital Signs: Temp Pulse Resp BP Pulse Ox 36.6 C 79 16 142/88 H 07/05/18 07:47 07/05/18 07:47 07/05/18 07:47 07/05/18 07:47 Height 5 ft 3 in Weight (kg) 90.265 kg Body Mass Index 31.7 - NPO Last Fluid Intake: clears t/o noc - Is Patient ?: Yes - Lab Results Current Lab Results: Laboratory Tests 07/05/18 20:32: Lactate Dehydrogenase 182 07/05/18 20:32: Sodium 135, Potassium 4.1, Chloride 105, Carbon Dioxide 19 L, Anion Gap 11.0, BUN 12, Creatinine 0.9, Estimated GFR (MDRD) 76 L, Glucose 82, Uric Acid 6.3, Calcium 8.8, Total Bilirubin 0.7, AST 53 H, ALT 36, Alkaline Phosphatase 257 H, Total Protein 7.1, Albumin 3.0 L, Globulin 4.1, Albu min/Globulin Ratio 0.7 L 07/05/18 20:32: WBC 11.2 H, RBC 4.25, Hgb 12.2, Hct 36.4 L, MCV 85.7, MCH 28.6, MCHC 33.4, RDW 12.9, Plt Count 304, MPV 10.5, Neut # (Auto) 7.2 H, Lymph # (Auto) 2.8, Nash # (Auto) 1.1 H, Eos # (Auto) 0.1, Baso # (Auto) 0.1, Absolute Nucleated RBC 0.00, Nucleated RBC % 0.0 07/05/18 08:15: Uric Acid 6.5, AST 53 H 07/05/18 08:15: WBC 9.7, RBC 4.11 L, Hgb 11.9 L, Hct 35.3 L, MCV 85.8, MCH 28.9, MCHC 33.7, RDW 13.0, Plt Count 294, MPV 10.5, Neut # (Auto) 6.0, Lymph # (Auto) 2.8, Nash # (Auto) 0.9, Eos # (Auto) 0.0, Baso # (Auto) 0.0, Absolute Nucleated RBC 0.00, Nucleated RBC % 0.0 07/05/18 08:15: Lactate Dehydrogenase 194 Lab results reviewed: Yes Fish Bones: 07/05/18 20:32 07/05/18 20:32 Home Medications and Allergies Active Medications Lactated Ringer's (Lr) 1,000 mls @ 100 mls/hr IV .Q10H [facility] Misoprostol (Cytotec) 50 mcg BC Q4H [facility] Last Admin: 07/05/18 23:02 Dose: 50 mcg Ondansetron HCl (Zofran Inj) 4 mg IVP Q4HR PRN PRN Reason: Nausea / Vomiting Sodium Chloride (Normal Saline Flush 0.9%) 10 ml IVP 0100,0900,1700 [facility] Last Admin: 07/06/18 04:12 Dose: 10 ml Sodium Chloride (Normal Saline Flush 0.9%) 10 ml IVP PRN PRN PRN Reason: NEEDED PER PROVIDER ORDERS Albuterol Sulf [Ventolin Hfa Inhaler] 2 puffs INH Q4H PRN 07/17/17 Allergies/Adverse Reactions: Allergies Allergy/AdvReac Type Severity Reaction Status Date / Time amoxicillin [Amoxicillin] Allergy Hives Verified 07/17/17 15:51 Anes History & Medical History - Anesthetic History Anesthesia Complications: reports: No previous complications Family history of Anesthesia Complications: Denies Family history of Malignant Hyperthermia: Denies - Medical History Pulmonary: reports: Asthma Smoking Status: Never smoker - Obstetrical History : 1 Parity: 0 Events: positive: None Complications: positive: None Exam General: Alert, Oriented x3 Dental: WNL Mouth Openin Fingerbreadth Neck Mobility: Normal Mallampati classification: II Respiratory: No respiratory distress Cardiovascular: Regular rate Neurological: Normal speech Mental/Cognitive Status: Alert/Oriented X3 Cognitive Status: Within normal limits Plan Anesthesia Type: Epidural Consent for Procedure(s) Verified and Reviewed: Yes Code Status: Attempt Resuscitation ASA classification: 2-Mild systemic disease Is this case an emergency?: No
[2018-07-06] MEDS ORDERED: ROPIVACAINE 0.2% PF 20 ML AMPULE ONE (06:50)
[2018-07-06] MEDS ORDERED: fentaNYL 100 MCG/2 ML VIAL ONE ×2 (06:50→09:40)
--- NOTE | 2018-07-06 06:50 | PROVIDER PROGRESS NOTE ---
Labor Progress Note - Uterine Monitoring Uterine Monitoring Mode: positive: External toco Contraction Frequency (min/apart): 3-5 Contraction Intensity: positive: Strong Uterine Resting Tone: positive: Soft - Monitoring Monitor Mode: positive: External ultrasound Heart Rate Baseline: 140 Heart Rate Variability: positive: Moderate (6-25 bmp) Accelerations: positive: Present, 15x15 Decelerations: positive: None Strip Review: positive: Category I - Vaginal Exam Dilation (in cm): 5 Effacement (%): 100 Station: 1 Cervical Position: Anterior - Labor Progress Note Labor Progress Note/Additional Text: S: Patient laying comfortably with epidural with and mother present and supportive at the bedside. Patient feeling better now that she has her epidural. O: BP 107/74. Contractions palpate strong every 3-5 minutes with soft resting tone. FHR baseline 140s, moderate variability, + accels, no decels. SVE 5/100/+1, vertex. A: 23yo @ 39.6wks gestation Preeclampsia - labs stable, BP has remained stable throughout the night GBS negative SROM - afebrile P: Continuous monitoring Continue serial BPs Discussed plan of care and patient stable status with Dr. Almanza who is in agreement with co-management of the patient. Dr. Almanza will continue to direct medical decision making and patient's labor progress will be co-managed with midwifery and physician practices. Anticipate spontaneous vaginal delivery.
[2018-07-06] MEDS ORDERED: ONDANSETRON 4 MG/2 ML VIAL IVP PRN (06:53)
[2018-07-06] MEDS ORDERED: fent/BUPIV 2 MCG/0.125% 250 ML EP PRN (06:53)
[2018-07-06] MEDS ORDERED: diphenhydrAMINE INJ 50 MG/ML VIAL IVP PRN (06:53)
[2018-07-06] MEDS ORDERED: NALBUPHINE 10 MG/ML AMP IVP PRN (06:53)
[2018-07-06 08:03] LABS: BASOPHILS % (AUTO) 0.2 %; HGB - HEMOGLOBIN 11.9 g/dL (12.0-16.0); LYMPHOCYTES # (AUTO) 1.4 10^3/uL (1.5-3.5); LYMPHOCYTES % (AUTO) 8.7 %; MEAN CORPUSCULAR HGB CONC 33.8 g/dL (32.0-36.0); MEAN CORPUSCULAR VOLUME 85.7 fL (81.0-99.0); MEAN PLATELET VOLUME 10.4 fL (7.9-10.8); MONOCYTES # (AUTO) 0.7 10^3/uL (0.0-1.0); MONOCYTES % (AUTO) 4.4 %; NEUTROPHILS # (AUTO) 14.2 10^3/uL (1.5-6.6); NEUTROPHILS % (AUTO) 86.7 %; PLT - PLATELET COUNT 270 10^3/uL (130-450); RED BLOOD COUNT 4.12 10^6/uL (4.20-5.40); RED CELL DISTRIBUTION WIDTH 12.9 % (12.0-15.0); WHITE BLOOD COUNT 16.3 x10^3/uL (4.8-10.8)
[2018-07-06 08:18] LABS: URIC ACID 6.3 mg/dL (2.6-7.2)
--- NOTE | 2018-07-06 09:09 | PROVIDER PROGRESS NOTE ---
Labor Progress Note - Uterine Monitoring Uterine Monitoring Mode: positive: External toco Contraction Frequency (min/apart): 3-5 Contraction Intensity: positive: Strong Uterine Resting Tone: positive: Soft - Monitoring Monitor Mode: positive: External ultrasound Heart Rate Variability: positive: Moderate (6-25 bmp) Accelerations: positive: Present, 15x15 Decelerations: positive: Early Strip Review: positive: Category I - Vaginal Exam Dilation (in cm): 8 Effacement (%): 100 Station: 1 Cervical Position: Anterior - Labor Progress Note Labor Progress Note/Additional Text: S: Feeling more uncomfortable on her left side and feeling irritated by the carvajal catheter. Family supportive at the bedside. O: Bp 134/82. Contractions palpate strong every 3-5min with soft resting tone. FHR baseline 130s, moderate variability, + accels, intermittent early decelerations. SVE 8/100/+1, anterior, vertex A: 23yo @ 39.6wks gestation Active labor Preeclampsia- stable BPs and labs SROM x 6.5hrs P: Continuous monitoring Continue expectant management Serial BPs Anesthesia provider to be notified of patient's discomfort and return for management when available. Anticipate spontaneous vaginal delivery.
[2018-07-06] MEDS ORDERED: SODIUM CHLORIDE 0.9% 10 ML ONE (09:40)
[2018-07-06] MEDS ORDERED: LIDOCAINE-PF 2% 10 ML AMP SUBQ ONE (09:41)
--- NOTE | 2018-07-06 09:45 | ANESTHESIA PROCEDURE NOTE ---
Anesthesia Epidural Template - Patient Report Patient Reports: positive: Other (Patient reports pain in the left lower abdomen with contractions. She is 8cm dilated) - Other Comments Other Comments: Epidural dosed with 5ml 2% lidocaine+100mcg fentanyl+3ml of PF NS. Patient reports improved pain with contractions.
[2018-07-06 10:14] LABS: CREATININE,URINE 188.2 mg/dL; PROTEIN/CREATININE RATIO,URINE 0.7 (<=0.2)
[2018-07-06] MEDS ORDERED: WITCH HAZEL/GLYCERIN 1 EACH MED..PAD TOP PRN (12:02)
[2018-07-06] MEDS ORDERED: HYDROCORTISONE 1% CREAM 28 GM TUBE PR PRN (12:02)
--- NOTE | 2018-07-06 12:18 | DELIVERY NOTE ---
Delivery Note - Labor Labor: positive: Other - Infant Delivery Method Delivery Method: positive: Spontaneous vaginal delivery - Presentation Presentation: positive: Vertex, JAYA - left occiput anterior - Nuchal Cord Nuchal Cord: positive: Present - Amniotic Fluid Description Amniotic Fluid Description: positive: Clear - Episiotomy Type Episiotomy Type: positive: None - Laceration Laceration: positive: 1st degree, Periurethral, Vaginal - Suture Suture Type: positive: Vicryl Suture Size: positive: 2-0, 4-0 - Delivery Outcome Delivery Outcome: positive: Livebirth - King : positive: Placed in direct skin contact with mother, Bulb syringe, Stimulated, Warmed, [place] used sex: positive: Female - Cord Cord: positive: 3 vessels - Placenta Placenta: positive: Intact, Spontaneous - Estimated Blood Loss Estimated Blood Loss (in cc): 250 - Post Delivery Events Post Delivery Events: positive: No post delivery events - Delivery Comments (Free Text/Narrative) Delivery Comments (Free Text/Narrative): This 23yo @ 39.6wks gestation presented for scheduled induction of labor secondary to preeclampsia which was diagnosed following elevated BP and elevated LFTs in combination with proteinuria and a protein- creatinine ratio of 0.3 which elevated in the final stages of labor to 0.7. She presented at 0730 on 07/05/2018 and received 50mcg BC misoprosotol q 4hrs for cervical ripening. She was co-managed with physician providers secondary to her diagnosis of preeclampsia. SROM occurred on 07/06/2018 at 0230 and was noted to be a moderate amount of clear fluid followed by transition to active labor and consistent uterine contractions. Epidural placed per maternal request. FHR pattern demonstrated baseline 130s-140s in a Category I pattern throughout labor. The patient progressed to c/c/+2 at 1057. Normal of viable female infant at 1125 on 07/06/2018. Nuchal cord x 1 deli alejo through. 's 8/9 at 1 and 5 min respectively. The was placed on maternal abdomen, stimulated, dried, and placed skin to skin. The umbilical cord was allowed to stop pulsating at which time it was doubly clamped by CNM and cut by FOB. Cord blood was obtained. EBL 250mL. Placenta delivered spontaneously and intact at 1135. Pitocin administered via IV for hemostasis. Uterine fundus firm and there is no excessive bleeding. The perineum, vagina, and cervix were inspected and found to have a first degree vaginal laceration which was repaired with a 2-[address]-1 needle in addition to a left periurethral laceration which was repaired using a 4-0 vicryl on an SH needle in standard fashion under sterile conditions. Vaginal examination following repair was completed. Tissues well approximated. Skin to skin contact initiated. Family bonding well. Both mother and baby were left in stable condition.
--- NOTE | 2018-07-06 14:12 | PROVIDER PROGRESS NOTE ---
Subjective - Subjective Subjective: BP 120s/80s. Pt denies FRAZIER, visual disturbances, RUQ or epigastric pain. Repeat [facility] labs per Dr. Yovanny esquivel and again in the morning. Objective - Vital Signs/Intake & Output Intake & Output: Intake & Output 07/03/18 07/04/18 07/05/18 07/06/18 23:59 23:59 23:59 23:59 Intake Total 240 Output Total 575 Balance -335 - Lab Results Fish Bones: 07/06/18 07:55 07/05/18 20:32 Other Labs: Lab Results x24hrs 07/06/18 07/06/18 07/06/18 Range/Units 09:00 07:55 07:55 WBC (4.8-10.8) x10^3/uL RBC (4.20-5.40) 10^6/uL Hgb (12.0-16.0) g/dL Hct (37.0-47.0) % MCV (81.0-99.0) fL MCH (27.0-31.0) pg MCHC (32.0-36.0) g/dL RDW (12.0-15.0) % Plt Count (130-450) 10^3/uL MPV (7.9-10.8) fL Neut # (Auto) (1.5-6.6) 10^3/uL Lymph # (Auto) (1.5-3.5) 10^3/uL Gove # (Auto) (0.0-1.0) 10^3/uL Eos # (Auto) (0.0-0.7) 10^3/uL Baso # (Auto) (0.0-0.1) 10^3/uL Absolute Nucleated RBC x10^3/uL Nucleated RBC % /100WBC Fibrinogen (220-496) mg/dL Sodium (135-145) mmol/L Potassium (3.5-5.0) mmol/L Chloride (101-111) mmol/L Carbon Dioxide (21-32) mmol/L Anion Gap (6-13) BUN (6-20) mg/dL Creatinine (0.4-1.0) mg/dL Estimated GFR (MDRD) (>89) Glucose (70-100) mg/dL Uric Acid 6.3 (2.6-7.2) mg/dL Calcium (8.5-10.3) mg/dL Total Bilirubin (0.2-1.0) mg/dL AST 62 H (10-42) IU/L ALT (10-60) IU/L Alkaline Phosphatase (42-121) IU/L Lactate Dehydrogenase 204 (91-225) IU/L Total Protein (6.7-8.2) g/dL Albumin (3.2-5.5) g/dL Globulin (2.1-4.2) g/dL Albumin/Globulin Ratio (1.0-2.2) Urine Creatinine 188.2 mg/dL Ur Total Protein Timed 123 mg/dL Protein/Creatinin Ratio 0.7 H (<=0.2) 07/06/18 07/06/18 07/05/18 Range/Units 07:55 07:55 20:38 WBC 16.3 H (4.8-10.8) x10^3/uL RBC 4.12 L (4.20-5.40) 10^6/uL Hgb 11.9 L (12.0-16.0) g/dL Hct 35.3 L (37.0-47.0) % MCV 85.7 (81.0-99.0) fL MCH 29.0 (27.0-31.0) pg MCHC 33.8 (32.0-36.0) g/dL RDW 12.9 (12.0-15.0) % Plt Count 270 (130-450) 10^3/uL MPV 10.4 (7.9-10.8) fL Neut # (Auto) 14.2 H (1.5-6.6) 10^3/uL Lymph # (Auto) 1.4 L (1.5-3.5) 10^3/uL Gove # (Auto) 0.7 (0.0-1.0) 10^3/uL Eos # (Auto) 0.0 (0.0-0.7) 10^3/uL Baso # (Auto) 0.0 (0.0-0.1) 10^3/uL Absolute Nucleated RBC 0.01 x10^3/uL Nucleated RBC % 0.1 /100WBC Fibrinogen 627 H (220-496) mg/dL Sodium (135-145) mmol/L Potassium (3.5-5.0) mmol/L Chloride (101-111) mmol/L Carbon Dioxide (21-32) mmol/L Anion Gap (6-13) BUN (6-20) mg/dL Creatinine (0.4-1.0) mg/dL Estimated GFR (MDRD) (>89) Glucose (70-100) mg/dL Uric Acid (2.6-7.2) mg/dL Calcium (8.5-10.3) mg/dL Total Bilirubin (0.2-1.0) mg/dL AST (10-42) IU/L ALT (10-60) IU/L Alkaline Phosphatase (42-121) IU/L Lactate Dehydrogenase (91-225) IU/L Total Protein (6.7-8.2) g/dL Albumin (3.2-5.5) g/dL Globulin (2.1-4.2) g/dL Albumin/Globulin Ratio (1.0-2.2) Urine Creatinine 39.5 mg/dL Ur Total Protein Timed 11 mg/dL Protein/Creatinin Ratio 0.3 H (<=0.2) 07/05/18 07/05/18 07/05/18 Range/Units 20:32 20:32 20:32 WBC 11.2 H (4.8-10.8) x10^3/uL RBC 4.25 (4.20-5.40) 10^6/uL Hgb 12.2 (12.0-16.0) g/dL Hct 36.4 L (37.0-47.0) % MCV 85.7 (81.0-99.0) fL MCH 28.6 (27.0-31.0) pg MCHC 33.4 (32.0-36.0) g/dL RDW 12.9 (12.0-15.0) % Plt Count 304 (130-450) 10^3/uL MPV 10.5 (7.9-10.8) fL Neut # (Auto) 7.2 H (1.5-6.6) 10^3/uL Lymph # (Auto) 2.8 (1.5-3.5) 10^3/uL Gove # (Auto) 1.1 H (0.0-1.0) 10^3/uL Eos # (Auto) 0.1 (0.0-0.7) 10^3/uL Baso # (Auto) 0.1 (0.0-0.1) 10^3/uL Absolute Nucleated RBC 0.00 x10^3/uL Nucleated RBC % 0.0 /100WBC Fibrinogen (220-496) mg/dL Sodium 135 (135-145) mmol/L Potassium 4.1 (3.5-5.0) mmol/L Chloride 105 (101-111) mmol/L Carbon Dioxide 19 L (21-32) mmol/L Anion Gap 11.0 (6-13) BUN 12 (6-20) mg/dL Creatinine 0.9 (0.4-1.0) mg/dL Estimated GFR (MDRD) 76 L (>89) Glucose 82 (70-100) mg/dL Uric Acid 6.3 (2.6-7.2) mg/dL Calcium 8.8 (8.5-10.3) mg/dL Total Bilirubin 0.7 (0.2-1.0) mg/dL AST 53 H (10-42) IU/L ALT 36 (10-60) IU/L Alkaline Phosphatase 257 H (42-121) IU/L Lactate Dehydrogenase 182 (91-225) IU/L Total Protein 7.1 (6.7-8.2) g/dL Albumin 3.0 L (3.2-5.5) g/dL Globulin 4.1 (2.1-4.2) g/dL Albumin/Globulin Ratio 0.7 L (1.0-2.2) Urine Creatinine mg/dL Ur Total Protein Timed mg/dL Protein/Creatinin Ratio (<=0.2)
[2018-07-06] MEDS: ACETAMINOPHEN 500 MG TABLET PO SCH (14:18)
[2018-07-06] MEDS: IBUPROFEN 800 MG TABLET PO SCH ×3 (14:19→23:22)
[2018-07-06] MEDS ORDERED: LIDOCAINE-MPF 1% 30 ML VIAL ONE (15:38)
[2018-07-06 18:56] LABS: BASOPHILS % (AUTO) 0.4 %; HGB - HEMOGLOBIN 11.6 g/dL (12.0-16.0); LYMPHOCYTES % (AUTO) 8.6 %; MEAN CORPUSCULAR HEMOGLOBIN 29.2 pg (27.0-31.0); MEAN CORPUSCULAR HGB CONC 34.1 g/dL (32.0-36.0); MEAN CORPUSCULAR VOLUME 85.7 fL (81.0-99.0); MEAN PLATELET VOLUME 10.6 fL (7.9-10.8); PLT - PLATELET COUNT 282 10^3/uL (130-450); RED BLOOD COUNT 3.98 10^6/uL (4.20-5.40); RED CELL DISTRIBUTION WIDTH 13.4 % (12.0-15.0)
[2018-07-06 18:59] LABS: ABNORMAL LYMPHS % (MANUAL) 0 %; BAND NEUTROPHILS % (MANUAL) 0 %
[2018-07-06 19:17] LABS: DIFFERENTIAL COMMENT MANUAL DIFFERENTIAL; LYMPHOCYTES # (MANUAL) 1.1 10^3/uL (1.5-3.5); LYMPHOCYTES % (MANUAL) 5 %; MONOCYTES # (MANUAL) 1.1 10^3/uL (0.0-1.0); NEUTROPHILS # (MANUAL) 19.8 10^3/uL (1.5-6.6); NEUTROPHILS % (MANUAL) 90 %; PLATELET ESTIMATE, MANUAL NORMAL (130-450,000) (NORMAL); PLATELET MORPHOLOGY NORMAL APPEARANCE (NORMAL); RBC MORPHOLOGY (MULTIPLE) NORMAL APPEARANCE (NORMAL)
[2018-07-06 19:21] LABS: URIC ACID 5.9 mg/dL (2.6-7.2)
--- NOTE | 2018-07-06 20:08 | PROVIDER PROGRESS NOTE ---
Subjective - Subjective Subjective: BP 120/60s for the past several hours. Pt denies FRAZIER, visual disturbances, RUQ or epigastric pain. DTRs 2+, no clonus. PIH labs drawn 07/06/2018: AST 53-->62-->72 LDH 182-->204-->234 Uric acid 6.3-->6.3-->5.9 PLT 304 -->270-->282 protein-creatinine ratio 0.3-->0.7--> pending Reviewed clinical status with Dr. Hairston, regional operations manager physician whom requests BP decrease to q 4 hours and repeat labs 07/07/2018 at 1230. Orders entered. L&D RN instructed to call if pending protein/creatinine ratio >0.7 and if BP is elevated 160 diastolic or 110 systolic Objective - Vital Signs/Intake & Output Vital Signs: Vital Signs x48h Temp Pulse Resp BP 07/06/18 15:00 98.5 C H 07/06/18 13:00 62 18 120/68 07/06/18 12:47 88 16 120/80 07/06/18 12:32 63 16 126/65 07/06/18 12:17 63 18 126/65 07/06/18 12:02 98 22 149/129 H Intake & Output: Intake & Output 07/03/18 07/04/18 07/05/18 07/06/18 23:59 23:59 23:59 23:59 Intake Total 240 Output Total 575 Balance -335 - Lab Results Fish Bones: 07/06/18 18:39 07/05/18 20:32 Other Labs: Lab Results x24hrs 07/06/18 07/06/18 07/06/18 Range/Units 18:39 18:39 18:39 WBC 22.0 H (4.8-10.8) x10^3/uL RBC 3.98 L (4.20-5.40) 10^6/uL Hgb 11.6 L (12.0-16.0) g/dL Hct 34.1 L (37.0-47.0) % MCV 85.7 (81.0-99.0) fL MCH 29.2 (27.0-31.0) pg MCHC 34.1 (32.0-36.0) g/dL RDW 13.4 (12.0-15.0) % Plt Count 282 (130-450) 10^3/uL MPV 10.6 (7.9-10.8) fL Neut # (Auto) Not Reportable (1.5-6.6) 10^3/uL Lymph # (Auto) Not Reportable (1.5-3.5) 10^3/uL Dundy # (Auto) Not Reportable (0.0-1.0) 10^3/uL Eos # (Auto) Not Reportable (0.0-0.7) 10^3/uL Baso # (Auto) Not Reportable (0.0-0.1) 10^3/uL Absolute Nucleated RBC Not Reportable x10^3/uL Total Counted 100 Band Neuts % (Manual) 0 (0 - 10) % Abnorm Lymph % (Manual) 0 % Nucleated RBC % Not Reportable /100WBC Neutrophils # (Manual) 19.8 H (1.5-6.6) 10^3/uL Lymphocytes # (Manual) 1.1 L (1.5-3.5) 10^3/uL Monocytes # (Manual) 1.1 H (0.0-1.0) 10^3/uL Eosinophils # (Manual) 0.0 (0-0.7) 10^3/uL Basophils # (Manual) 0.0 (0-0.1) 10^3/uL Differential Comment MANUAL DIFFERENTIAL Manual Slide Review Indicated WBC Morphology NORMAL APPEARANCE (NORMAL) Platelet Estimate NORMAL (130-450,000) (NORMAL) Platelet Morphology NORMAL APPEARANCE (NORMAL) RBC Morph Micro Appear NORMAL APPEARANCE (NORMAL) Fibrinogen (220-496) mg/dL Sodium (135-145) mmol/L Potassium (3.5-5.0) mmol/L Chloride (101-111) mmol/L Carbon Dioxide (21-32) mmol/L Anion Gap (6-13) BUN (6-20) mg/dL Creatinine (0.4-1.0) mg/dL Estimated GFR (MDRD) (>89) Glucose (70-100) mg/dL Uric Acid 5.9 (2.6-7.2) mg/dL Calcium (8.5-10.3) mg/dL Total Bilirubin (0.2-1.0) mg/dL AST 72 H (10-42) IU/L ALT (10-60) IU/L Alkaline Phosphatase (42-121) IU/L Lactate Dehydrogenase 234 H (91-225) IU/L Total Protein (6.7-8.2) g/dL Albumin (3.2-5.5) g/dL Globulin (2.1-4.2) g/dL Albumin/Globulin Ratio (1.0-2.2) Urine Creatinine mg/dL Ur Total Protein Timed mg/dL Protein/Creatinin Ratio (<=0.2) 07/06/18 07/06/18 07/06/18 Range/Units 09:00 07:55 07:55 WBC (4.8-10.8) x10^3/uL RBC (4.20-5.40) 10^6/uL Hgb (12.0-16.0) g/dL Hct (37.0-47.0) % MCV (81.0-99.0) fL MCH (27.0-31.0) pg MCHC (32.0-36.0) g/dL RDW (12.0-15.0) % Plt Count (130-450) 10^3/uL MPV (7.9-10.8) fL Neut # (Auto) (1.5-6.6) 10^3/uL Lymph # (Auto) (1.5-3.5) 10^3/uL Dundy # (Auto) (0.0-1.0) 10^3/uL Eos # (Auto) (0.0-0.7) 10^3/uL Baso # (Auto) (0.0-0.1) 10^3/uL Absolute Nucleated RBC x10^3/uL Total Counted Band Neuts % (Manual) (0 - 10) % Abnorm Lymph % (Manual) % Nucleated RBC % /100WBC Neutrophils # (Manual) (1.5-6.6) 10^3/uL Lymphocytes # (Manual) (1.5-3.5) 10^3/uL Monocytes # (Manual) (0.0-1.0) 10^3/uL Eosinophils # (Manual) (0-0.7) 10^3/uL Basophils # (Manual) (0-0.1) 10^3/uL Differential Comment Manual Slide Review WBC Morphology (NORMAL) Platelet Estimate (NORMAL) Platelet Morphology (NORMAL) RBC Morph Micro Appear (NORMAL) Fibrinogen (220-496) mg/dL Sodium (135-145) mmol/L Potassium (3.5-5.0) mmol/L Chloride (101-111) mmol/L Carbon Dioxide (21-32) mmol/L Anion Gap (6-13) BUN (6-20) mg/dL Creatinine (0.4-1.0) mg/dL Estimated GFR (MDRD) (>89) Glucose (70-100) mg/dL Uric Acid 6.3 (2.6-7.2) mg/dL Calcium (8.5-10.3) mg/dL Total Bilirubin (0.2-1.0) mg/dL AST 62 H (10-42) IU/L ALT (10-60) IU/L Alkaline Phosphatase (42-121) IU/L Lactate Dehydrogenase 204 (91-225) IU/L Total Protein (6.7-8.2) g/dL Albumin (3.2-5.5) g/dL Globulin (2.1-4.2) g/dL Albumin/Globulin Ratio (1.0-2.2) Urine Creatinine 188.2 mg/dL Ur Total Protein Timed 123 mg/dL Protein/Creatinin Ratio 0.7 H (<=0.2) 07/06/18 07/06/18 07/05/18 Range/Units 07:55 07:55 20:38 WBC 16.3 H (4.8-10.8) x10^3/uL RBC 4.12 L (4.20-5.40) 10^6/uL Hgb 11.9 L (12.0-16.0) g/dL Hct 35.3 L (37.0-47.0) % MCV 85.7 (81.0-99.0) fL MCH 29.0 (27.0-31.0) pg MCHC 33.8 (32.0-36.0) g/dL RDW 12.9 (12.0-15.0) % Plt Count 270 (130-450) 10^3/uL MPV 10.4 (7.9-10.8) fL Neut # (Auto) 14.2 H (1.5-6.6) 10^3/uL Lymph # (Auto) 1.4 L (1.5-3.5) 10^3/uL Dundy # (Auto) 0.7 (0.0-1.0) 10^3/uL Eos # (Auto) 0.0 (0.0-0.7) 10^3/uL Baso # (Auto) 0.0 (0.0-0.1) 10^3/uL Absolute Nucleated RBC 0.01 x10^3/uL Total Counted Band Neuts % (Manual) (0 - 10) % Abnorm Lymph % (Manual) % Nucleated RBC % 0.1 /100WBC Neutrophils # (Manual) (1.5-6.6) 10^3/uL Lymphocytes # (Manual) (1.5-3.5) 10^3/uL Monocytes # (Manual) (0.0-1.0) 10^3/uL Eosinophils # (Manual) (0-0.7) 10^3/uL Basophils # (Manual) (0-0.1) 10^3/uL Differential Comment Manual Slide Review WBC Morphology (NORMAL) Platelet Estimate (NORMAL) Platelet Morphology (NORMAL) RBC Morph Micro Appear (NORMAL) Fibrinogen 627 H (220-496) mg/dL Sodium (135-145) mmol/L Potassium (3.5-5.0) mmol/L Chloride (101-111) mmol/L Carbon Dioxide (21-32) mmol/L Anion Gap (6-13) BUN (6-20) mg/dL Creatinine (0.4-1.0) mg/dL Estimated GFR (MDRD) (>89) Glucose (70-100) mg/dL Uric Acid (2.6-7.2) mg/dL Calcium (8.5-10.3) mg/dL Total Bilirubin (0.2-1.0) mg/dL AST (10-42) IU/L ALT (10-60) IU/L Alkaline Phosphatase (42-121) IU/L Lactate Dehydrogenase (91-225) IU/L Total Protein (6.7-8.2) g/dL Albumin (3.2-5.5) g/dL Globulin (2.1-4.2) g/dL Albumin/Globulin Ratio (1.0-2.2) Urine Creatinine 39.5 mg/dL Ur Total Protein Timed 11 mg/dL Protein/Creatinin Ratio 0.3 H (<=0.2) 07/05/18 07/05/18 07/05/18 Range/Units 20:32 20:32 20:32 WBC 11.2 H (4.8-10.8) x10^3/uL RBC 4.25 (4.20-5.40) 10^6/uL Hgb 12.2 (12.0-16.0) g/dL Hct 36.4 L (37.0-47.0) % MCV 85.7 (81.0-99.0) fL MCH 28.6 (27.0-31.0) pg MCHC 33.4 (32.0-36.0) g/dL RDW 12.9 (12.0-15.0) % Plt Count 304 (130-450) 10^3/uL MPV 10.5 (7.9-10.8) fL Neut # (Auto) 7.2 H (1.5-6.6) 10^3/uL Lymph # (Auto) 2.8 (1.5-3.5) 10^3/uL Dundy # (Auto) 1.1 H (0.0-1.0) 10^3/uL Eos # (Auto) 0.1 (0.0-0.7) 10^3/uL Baso # (Auto) 0.1 (0.0-0.1) 10^3/uL Absolute Nucleated RBC 0.00 x10^3/uL Total Counted Band Neuts % (Manual) (0 - 10) % Abnorm Lymph % (Manual) % Nucleated RBC % 0.0 /100WBC Neutrophils # (Manual) (1.5-6.6) 10^3/uL Lymphocytes # (Manual) (1.5-3.5) 10^3/uL Monocytes # (Manual) (0.0-1.0) 10^3/uL Eosinophils # (Manual) (0-0.7) 10^3/uL Basophils # (Manual) (0-0.1) 10^3/uL Differential Comment Manual Slide Review WBC Morphology (NORMAL) Platelet Estimate (NORMAL) Platelet Morphology (NORMAL) RBC Morph Micro Appear (NORMAL) Fibrinogen (220-496) mg/dL Sodium 135 (135-145) mmol/L Potassium 4.1 (3.5-5.0) mmol/L Chloride 105 (101-111) mmol/L Carbon Dioxide 19 L (21-32) mmol/L Anion Gap 11.0 (6-13) BUN 12 (6-20) mg/dL Creatinine 0.9 (0.4-1.0) mg/dL Estimated GFR (MDRD) 76 L (>89) Glucose 82 (70-100) mg/dL Uric Acid 6.3 (2.6-7.2) mg/dL Calcium 8.8 (8.5-10.3) mg/dL Total Bilirubin 0.7 (0.2-1.0) mg/dL AST 53 H (10-42) IU/L ALT 36 (10-60) IU/L Alkaline Phosphatase 257 H (42-121) IU/L Lactate Dehydrogenase 182 (91-225) IU/L Total Protein 7.1 (6.7-8.2) g/dL Albumin 3.0 L (3.2-5.5) g/dL Globulin 4.1 (2.1-4.2) g/dL Albumin/Globulin Ratio 0.7 L (1.0-2.2) Urine Creatinine mg/dL Ur Total Protein Timed mg/dL Protein/Creatinin Ratio (<=0.2)
[2018-07-06] MEDS: DOCUSATE SODIUM 100 MG CAPSULE PO SCH (20:48)
[2018-07-06 22:19] LABS: CREATININE,URINE 42.1 mg/dL
[2018-07-07] MEDS: ACETAMINOPHEN 500 MG TABLET PO SCH ×3 (02:19→13:52)
[2018-07-07] MEDS: SODIUM CHLORIDE FLUSH 0.9% 10 ML SYRINGE IVP SCH ×3 (02:20→02:22)
--- NOTE | 2018-07-07 07:46 | PROVIDER PROGRESS NOTE ---
Subjective - Subjective Subjective: S: Bonding well with baby. without difficulty. She states baby has been a little sleepy but has been able to get a few good feeds in. Pain well controlled with ibuprofen and tylenol. Bleeding decreased and is light. sleeping at the bedside. She denies FRAZIER, visual disturbances, RUQ or epigastric pain. O: BP 130/72, T 36.7, HR 56, RR 18 Heart RRR w/o M/G/R, lungs CTAB, abdomen soft and nontender and fundus is firm at U-1. Perineum intact and repair with trace edema. DTRs 2+, no clonus. Bilateral LE's trace edema. A: 23yo -->P1 PPD #1 s/p TSVD of viable female Pre-eclampsia - BPs stable. P: Continue routine care and medications. Repeat [facility] labs at 1230 this afternoon. Close attention to today. Plan for discharge home tomorrow if labs normalize and BPs remain stable. Pt verbalized understanding and agrees to above plan. Objective - Vital Signs/Intake & Output Vital Signs: Vital Signs x48h Temp Pulse Resp BP Pulse Ox 07/07/18 04:36 36.7 C 56 L 18 130/72 98 07/07/18 01:00 53 L 139/78 H Intake & Output: Intake & Output 07/04/18 07/05/18 07/06/18 07/07/18 23:59 23:59 23:59 23:59 Intake Total 240 800 Output Total 575 Balance -335 800 - Lab Results Fish Bones: 07/06/18 18:39 07/05/18 20:32 Other Labs: Lab Results x24hrs 07/06/18 07/06/18 07/06/18 Range/Units 21:46 18:39 18:39 WBC (4.8-10.8) x10^3/uL RBC (4.20-5.40) 10^6/uL Hgb (12.0-16.0) g/dL Hct (37.0-47.0) % MCV (81.0-99.0) fL MCH (27.0-31.0) pg MCHC (32.0-36.0) g/dL RDW (12.0-15.0) % Plt Count (130-450) 10^3/uL MPV (7.9-10.8) fL Neut # (Auto) (1.5-6.6) 10^3/uL Lymph # (Auto) (1.5-3.5) 10^3/uL [place] # (Auto) (0.0-1.0) 10^3/uL Eos # (Auto) (0.0-0.7) 10^3/uL Baso # (Auto) (0.0-0.1) 10^3/uL Absolute Nucleated RBC x10^3/uL Total Counted Band Neuts % (Manual) (0 - 10) % Abnorm Lymph % (Manual) % Nucleated RBC % /100WBC Neutrophils # (Manual) (1.5-6.6) 10^3/uL Lymphocytes # (Manual) (1.5-3.5) 10^3/uL Monocytes # (Manual) (0.0-1.0) 10^3/uL Eosinophils # (Manual) (0-0.7) 10^3/uL Basophils # (Manual) (0-0.1) 10^3/uL Differential Comment Manual Slide Review WBC Morphology (NORMAL) Platelet Estimate (NORMAL) Platelet Morphology (NORMAL) RBC Morph Micro Appear (NORMAL) Fibrinogen (220-496) mg/dL Uric Acid 5.9 (2.6-7.2) mg/dL AST 72 H (10-42) IU/L Lactate Dehydrogenase 234 H (91-225) IU/L Urine Creatinine 42.1 mg/dL Ur Total Protein Timed 42 mg/dL Protein/Creatinin Ratio 1.0 H (<=0.2) 07/06/18 07/06/18 07/06/18 Range/Units 18:39 09:00 07:55 WBC 22.0 H (4.8-10.8) x10^3/uL RBC 3.98 L (4.20-5.40) 10^6/uL Hgb 11.6 L (12.0-16.0) g/dL Hct 34.1 L (37.0-47.0) % MCV 85.7 (81.0-99.0) fL MCH 29.2 (27.0-31.0) pg MCHC 34.1 (32.0-36.0) g/dL RDW 13.4 (12.0-15.0) % Plt Count 282 (130-450) 10^3/uL MPV 10.6 (7.9-10.8) fL Neut # (Auto) Not Reportable (1.5-6.6) 10^3/uL Lymph # (Auto) Not Reportable (1.5-3.5) 10^3/uL [place] # (Auto) Not Reportable (0.0-1.0) 10^3/uL Eos # (Auto) Not Reportable (0.0-0.7) 10^3/uL Baso # (Auto) Not Reportable (0.0-0.1) 10^3/uL Absolute Nucleated RBC Not Reportable x10^3/uL Total Counted 100 Band Neuts % (Manual) 0 (0 - 10) % Abnorm Lymph % (Manual) 0 % Nucleated RBC % Not Reportable /100WBC Neutrophils # (Manual) 19.8 H (1.5-6.6) 10^3/uL Lymphocytes # (Manual) 1.1 L (1.5-3.5) 10^3/uL Monocytes # (Manual) 1.1 H (0.0-1.0) 10^3/uL Eosinophils # (Manual) 0.0 (0-0.7) 10^3/uL Basophils # (Manual) 0.0 (0-0.1) 10^3/uL Differential Comment MANUAL DIFFERENTIAL Manual Slide Review Indicated WBC Morphology NORMAL APPEARANCE (NORMAL) Platelet Estimate NORMAL (130-450,000) (NORMAL) Platelet Morphology NORMAL APPEARANCE (NORMAL) RBC Morph Micro Appear NORMAL APPEARANCE (NORMAL) Fibrinogen (220-496) mg/dL Uric Acid (2.6-7.2) mg/dL AST (10-42) IU/L Lactate Dehydrogenase 204 (91-225) IU/L Urine Creatinine 188.2 mg/dL Ur Total Protein Timed 123 mg/dL Protein/Creatinin Ratio 0.7 H (<=0.2) 07/06/18 07/06/18 07/06/18 Range/Units 07:55 07:55 07:55 WBC 16.3 H (4.8-10.8) x10^3/uL RBC 4.12 L (4.20-5.40) 10^6/uL Hgb 11.9 L (12.0-16.0) g/dL Hct 35.3 L (37.0-47.0) % MCV 85.7 (81.0-99.0) fL MCH 29.0 (27.0-31.0) pg MCHC 33.8 (32.0-36.0) g/dL RDW 12.9 (12.0-15.0) % Plt Count 270 (130-450) 10^3/uL MPV 10.4 (7.9-10.8) fL Neut # (Auto) 14.2 H (1.5-6.6) 10^3/uL Lymph # (Auto) 1.4 L (1.5-3.5) 10^3/uL [place] # (Auto) 0.7 (0.0-1.0) 10^3/uL Eos # (Auto) 0.0 (0.0-0.7) 10^3/uL Baso # (Auto) 0.0 (0.0-0.1) 10^3/uL Absolute Nucleated RBC 0.01 x10^3/uL Total Counted Band Neuts % (Manual) (0 - 10) % Abnorm Lymph % (Manual) % Nucleated RBC % 0.1 /100WBC Neutrophils # (Manual) (1.5-6.6) 10^3/uL Lymphocytes # (Manual) (1.5-3.5) 10^3/uL Monocytes # (Manual) (0.0-1.0) 10^3/uL Eosinophils # (Manual) (0-0.7) 10^3/uL Basophils # (Manual) (0-0.1) 10^3/uL Differential Comment Manual Slide Review WBC Morphology (NORMAL) Platelet Estimate (NORMAL) Platelet Morphology (NORMAL) RBC Morph Micro Appear (NORMAL) Fibrinogen 627 H (220-496) mg/dL Uric Acid 6.3 (2.6-7.2) mg/dL AST 62 H (10-42) IU/L Lactate Dehydrogenase (91-225) IU/L Urine Creatinine mg/dL Ur Total Protein Timed mg/dL Protein/Creatinin Ratio (<=0.2)
[2018-07-07] MEDS: IBUPROFEN 800 MG TABLET PO SCH ×2 (09:50→19:48)
[2018-07-07] MEDS: DOCUSATE SODIUM 100 MG CAPSULE PO SCH ×2 (09:51→19:48)
[2018-07-07 12:53] LABS: BASOPHILS # (AUTO) 0.1 10^3/uL (0.0-0.1); BASOPHILS % (AUTO) 0.4 %; EOSINOPHILS % (AUTO) 0.2 %; HGB - HEMOGLOBIN 11.8 g/dL (12.0-16.0); LYMPHOCYTES # (AUTO) 4.4 10^3/uL (1.5-3.5); MEAN CORPUSCULAR HEMOGLOBIN 28.6 pg (27.0-31.0); MEAN CORPUSCULAR VOLUME 86.8 fL (81.0-99.0); MEAN PLATELET VOLUME 10.1 fL (7.9-10.8); MONOCYTES # (AUTO) 1.3 10^3/uL (0.0-1.0); MONOCYTES % (AUTO) 6.4 %; NEUTROPHILS # (AUTO) 14.1 10^3/uL (1.5-6.6); PLT - PLATELET COUNT 320 10^3/uL (130-450); RED BLOOD COUNT 4.12 10^6/uL (4.20-5.40); RED CELL DISTRIBUTION WIDTH 13.3 % (12.0-15.0); WHITE BLOOD COUNT 19.9 x10^3/uL (4.8-10.8)
[2018-07-07 13:05] LABS: URIC ACID 5.8 mg/dL (2.6-7.2)
--- NOTE | 2018-07-07 14:13 | PROVIDER PROGRESS NOTE ---
Subjective - Subjective Subjective: Repeat [facility] labs: PLT 282-->320 AST 72-->65 LDH 234-->200 Uric acid 59-->5.8 BP 119/74 DTRs 2+, no clonus Urine output WNL Pt denies FRAZIER, visual disturbances, RUQ or epigastric pain, bilateral LE's no edema Reviewed clinical status with sediment remediation consultant physician Dr. Hairston. Recommendation is no further f/u labs and physician is in agreement with plan to discharge patient home tomorrow morning following appropriate discharge teaching and repeat labs at 4-6 weeks . Objective - Vital Signs/Intake & Output Vital Signs: Vital Signs x48h Temp Pulse Resp BP 07/07/18 10:00 36.6 C 65 18 119/74 Intake & Output: Intake & Output 07/04/18 07/05/18 07/06/18 07/07/18 23:59 23:59 23:59 23:59 Intake Total 240 800 Output Total 575 Balance -335 800 - Lab Results Fish Bones: 07/07/18 12:47 07/05/18 20:32 Other Labs: Lab Results x24hrs 07/07/18 07/07/18 07/07/18 Range/Units 12:47 12:47 12:47 WBC 19.9 H (4.8-10.8) x10^3/uL RBC 4.12 L (4.20-5.40) 10^6/uL Hgb 11.8 L (12.0-16.0) g/dL Hct 35.8 L (37.0-47.0) % MCV 86.8 (81.0-99.0) fL MCH 28.6 (27.0-31.0) pg MCHC 33.0 (32.0-36.0) g/dL RDW 13.3 (12.0-15.0) % Plt Count 320 (130-450) 10^3/uL MPV 10.1 (7.9-10.8) fL Neut # (Auto) 14.1 H Lymph # (Auto) 4.4 H [place] # (Auto) 1.3 H Eos # (Auto) 0.0 Baso # (Auto) 0.1 Absolute Nucleated RBC 0.01 Total Counted Band Neuts % (Manual) (0 - 10) % Abnorm Lymph % (Manual) % Nucleated RBC % 0.1 Neutrophils # (Manual) (1.5-6.6) 10^3/uL Lymphocytes # (Manual) (1.5-3.5) 10^3/uL Monocytes # (Manual) (0.0-1.0) 10^3/uL Eosinophils # (Manual) (0-0.7) 10^3/uL Basophils # (Manual) (0-0.1) 10^3/uL Differential Comment Manual Slide Review WBC Morphology (NORMAL) Platelet Estimate (NORMAL) Platelet Morphology (NORMAL) RBC Morph Micro Appear (NORMAL) Uric Acid 5.8 (2.6-7.2) mg/dL AST 65 H (10-42) IU/L Lactate Dehydrogenase 200 (91-225) IU/L Urine Creatinine mg/dL Ur Total Protein Timed mg/dL Protein/Creatinin Ratio (<=0.2) 07/06/18 07/06/18 07/06/18 Range/Units 21:46 18:39 18:39 WBC (4.8-10.8) x10^3/uL RBC (4.20-5.40) 10^6/uL Hgb (12.0-16.0) g/dL Hct (37.0-47.0) % MCV (81.0-99.0) fL MCH (27.0-31.0) pg MCHC (32.0-36.0) g/dL RDW (12.0-15.0) % Plt Count (130-450) 10^3/uL MPV (7.9-10.8) fL Neut # (Auto) Lymph # (Auto) [place] # (Auto) Eos # (Auto) Baso # (Auto) Absolute Nucleated RBC Total Counted Band Neuts % (Manual) (0 - 10) % Abnorm Lymph % (Manual) % Nucleated RBC % Neutrophils # (Manual) (1.5-6.6) 10^3/uL Lymphocytes # (Manual) (1.5-3.5) 10^3/uL Monocytes # (Manual) (0.0-1.0) 10^3/uL Eosinophils # (Manual) (0-0.7) 10^3/uL Basophils # (Manual) (0-0.1) 10^3/uL Differential Comment Manual Slide Review WBC Morphology (NORMAL) Platelet Estimate (NORMAL) Platelet Morphology (NORMAL) RBC Morph Micro Appear (NORMAL) Uric Acid 5.9 (2.6-7.2) mg/dL AST 72 H (10-42) IU/L Lactate Dehydrogenase 234 H (91-225) IU/L Urine Creatinine 42.1 mg/dL Ur Total Protein Timed 42 mg/dL Protein/Creatinin Ratio 1.0 H (<=0.2) 07/06/18 Range/Units 18:39 WBC 22.0 H (4.8-10.8) x10^3/uL RBC 3.98 L (4.20-5.40) 10^6/uL Hgb 11.6 L (12.0-16.0) g/dL Hct 34.1 L (37.0-47.0) % MCV 85.7 (81.0-99.0) fL MCH 29.2 (27.0-31.0) pg MCHC 34.1 (32.0-36.0) g/dL RDW 13.4 (12.0-15.0) % Plt Count 282 (130-450) 10^3/uL MPV 10.6 (7.9-10.8) fL Neut # (Auto) Not Reportable Lymph # (Auto) Not Reportable [place] # (Auto) Not Reportable Eos # (Auto) Not Reportable Baso # (Auto) Not Reportable Absolute Nucleated RBC Not Reportable Total Counted 100 Band Neuts % (Manual) 0 (0 - 10) % Abnorm Lymph % (Manual) 0 % Nucleated RBC % Not Reportable Neutrophils # (Manual) 19.8 H (1.5-6.6) 10^3/uL Lymphocytes # (Manual) 1.1 L (1.5-3.5) 10^3/uL Monocytes # (Manual) 1.1 H (0.0-1.0) 10^3/uL Eosinophils # (Manual) 0.0 (0-0.7) 10^3/uL Basophils # (Manual) 0.0 (0-0.1) 10^3/uL Differential Comment MANUAL DIFFERENTIAL Manual Slide Review Indicated WBC Morphology NORMAL APPEARANCE (NORMAL) Platelet Estimate NORMAL (130-450,000) (NORMAL) Platelet Morphology NORMAL APPEARANCE (NORMAL) RBC Morph Micro Appear NORMAL APPEARANCE (NORMAL) Uric Acid (2.6-7.2) mg/dL AST (10-42) IU/L Lactate Dehydrogenase (91-225) IU/L Urine Creatinine mg/dL Ur Total Protein Timed mg/dL Protein/Creatinin Ratio (<=0.2)
[2018-07-07 15:57] LABS: CREATININE,URINE 91.6 mg/dL; PROTEIN/CREATININE RATIO,URINE 0.4 (<=0.2)
[2018-07-08] MEDS: IBUPROFEN 800 MG TABLET PO SCH ×3 (01:19→08:40)
--- NOTE | 2018-07-08 07:36 | Discharge Plan ---
Discharge Plan Disposition: 01 Home, Self Care Condition: Good Diet: Regular Activity Restrictions: No Restrictions Shower Restrictions: No Driving Restrictions: No No Smoking: If you smoke, Please STOP! Call for help. Follow-up with: Twila Montenegro CNM, ARNP [Provider Admit Priv/Credential] -
--- NOTE | 2018-07-08 07:49 | PROVIDER PROGRESS NOTE ---
Subjective - Subjective Subjective: FINAL PROGRESS NOTE: S: Bonding well with baby. without difficulty. Pain well controlled with oral medications. They are hoping to get to go home today but per L&D nurses 's bilirubin is elevated and she may need phototherapy. Patient states she is not surprised but is disappointed as she was hoping to be able to sleep in her own bed tonight. Reports her bleeding is decreased and is light. Denies FRAZIER, visual disturbances, RUQ or epigastric pain. She denies fur ther concerns or complaints at this time. O: BP 137/75, T 36.6, HR 57, RR 16 Urine output WNL. Heart RRR w/o M/G/R, lungs CTAB, abdomen soft and nontender with fundus firm at U-2, bilateral LE's no edema. A: 23yo -->P1 s/p TSVD of viable female infant Pre-eclampsia - labs have improved, BP stable P: Reviewed self care and warning s/sx and when to present. Reviewed PIH warning s/sx and when to present. Will discharge to board mom status today if infant not discharged today. F/u in 1 week for support visit and in 3 weeks for routine visit. Will repeat PIH labs at 3 week pp visit. Advised continuation of PNV while and continuation of Ibuprofen and Tylenol OTC for pain management. Patient verbalized understanding and agrees to above plan. She denies further questions or concerns at this time. Objective - Vital Signs/Intake & Output Vital Signs: Vital Signs x48h Temp Pulse Resp BP Pulse Ox 07/08/18 01:21 36.6 C 57 L 16 137/75 H 100 Intake & Output: Intake & Output 07/05/18 07/06/18 07/07/18 07/08/18 23:59 23:59 23:59 23:59 Intake Total 240 800 Output Total 575 Balance -335 800 - Lab Results Fish Bones: 07/07/18 12:47 07/05/18 20:32 Other Labs: Lab Results x24hrs 07/07/18 07/07/18 07/07/18 Range/Units 13:45 12:47 12:47 WBC (4.8-10.8) x10^3/uL RBC (4.20-5.40) 10^6/uL Hgb (12.0-16.0) g/dL Hct (37.0-47.0) % MCV (81.0-99.0) fL MCH (27.0-31.0) pg MCHC (32.0-36.0) g/dL RDW (12.0-15.0) % Plt Count (130-450) 10^3/uL MPV (7.9-10.8) fL Neut # (Auto) (1.5-6.6) 10^3/uL Lymph # (Auto) (1.5-3.5) 10^3/uL [place] # (Auto) (0.0-1.0) 10^3/uL Eos # (Auto) (0.0-0.7) 10^3/uL Baso # (Auto) (0.0-0.1) 10^3/uL Absolute Nucleated RBC x10^3/uL Nucleated RBC % /100WBC Uric Acid 5.8 (2.6-7.2) mg/dL AST 65 H (10-42) IU/L Lactate Dehydrogenase 200 (91-225) IU/L Urine Creatinine 91.6 mg/dL Ur Total Protein Timed 40 mg/dL Protein/Creatinin Ratio 0.4 H (<=0.2) 07/07/18 Range/Units 12:47 WBC 19.9 H (4.8-10.8) x10^3/uL RBC 4.12 L (4.20-5.40) 10^6/uL Hgb 11.8 L (12.0-16.0) g/dL Hct 35.8 L (37.0-47.0) % MCV 86.8 (81.0-99.0) fL MCH 28.6 (27.0-31.0) pg MCHC 33.0 (32.0-36.0) g/dL RDW 13.3 (12.0-15.0) % Plt Count 320 (130-450) 10^3/uL MPV 10.1 (7.9-10.8) fL Neut # (Auto) 14.1 H (1.5-6.6) 10^3/uL Lymph # (Auto) 4.4 H (1.5-3.5) 10^3/uL [place] # (Auto) 1.3 H (0.0-1.0) 10^3/uL Eos # (Auto) 0.0 (0.0-0.7) 10^3/uL Baso # (Auto) 0.1 (0.0-0.1) 10^3/uL Absolute Nucleated RBC 0.01 x10^3/uL Nucleated RBC % 0.1 /100WBC Uric Acid (2.6-7.2) mg/dL AST (10-42) IU/L Lactate Dehydrogenase (91-225) IU/L Urine Creatinine mg/dL Ur Total Protein Timed mg/dL Protein/Creatinin Ratio (<=0.2)
[2018-07-08] MEDS: DOCUSATE SODIUM 100 MG CAPSULE PO SCH (08:39)
[2018-07-08] MEDS: ACETAMINOPHEN 500 MG TABLET PO SCH ×2 (08:39→08:40)
[2018-07-08] MEDS ORDERED: MEASLES,MUMPS & RUBELLA VACC 0.5 ML VIAL SUBQ ONE (10:31)
--- NOTE | 2018-07-08 11:51 | DISCHARGE SUMMARY ---
Physician: UMA Farias DATE OF ADMISSION: 07/06/2018 DATE OF DISCHARGE: 07/08/2018 DIAGNOSES ON ADMISSION 1. A 23-year-old G1, P0, at 39.5 weeks' gestation. 2. Preeclampsia. 3. Group B streptococcus negative. DIAGNOSES ON DISCHARGE 1. A 23-year-old G1, P1-0-0-1, status post spontaneous vaginal delivery on 07/06/2018. 2. First-degree perineal laceration, repair intact. 3. . 4. Preeclampsia with stable blood pressures and improving liver function studies and PIH labs. BRIEF HISTORY: Patient is a patient of [facility] who presented to the clinic on 07/04/2018. She presented with an elevated blood pressure, in combination with 2+ protein in her urine. PIH labs were performed and revealed elevated protein creatinine ratio and elevated AST, which warranted medical induction of labor for preeclampsia. Upon arrival to the unit on 07/05/2018, she was given pre- induction cervical ripening with 50 mcg of BC misoprostol q.4 hours. Spontaneous rupture of membranes occurred on 07/06/2018 at 0230 and was noted to be of a moderate amount of clear fluid. Epidural was placed per maternal request. The patient progressed to spontaneously deliver a viable female infant at 11:25 on 07/06/2018. Apgars were 8 and 9 at one and five minutes, respectively. EBL 250 mL. The perineum, vagina, and cervix were inspected and found to have a first-degree vaginal laceration, which was repaired with a 2-[address]-1 needle; in addition to a left periurethral laceration, which was repaired using 4-0 Vicryl on an SH needle in standard fashion under sterile conditions. She has been doing well in her course. She is ambulating and tolerating a regular diet. She is urinating without difficulty, and her lochia is normal. Her pain is well controlled with oral medications. Her blood pressures have remained stable throughout her course. Her PIH labs have continued to improve. The patient has been co-managed throughout the duration of her intrapartum course with the physician providers Dr. Almanza and Dr. Hairston. Reviewed clinical status and plan with on-call physician, Dr. Hairston. She will be discharged home today on day #2. may require phototherapy and, in the event that is the case, she will be discharged to [facility] status. She has been given instructions to continue her vitamins while she is , and to continue ibuprofen and Tylenol [id number] for pain management as needed. She intends to follow up with me in 1 week for support visit, and in 3 weeks for routine visit. Her labs will be repeated at her 3-week visit. She has been given precautions to call if she has any worsening fevers, chills, abdominal pain, increased bleeding, or foul-smelling vaginal lochia. TD: 07/08/2018 07:59 IRAM
[2018-07-08 12:35] VITALS: BP 159/89
--- NOTE | 2018-07-08 13:33 | Labor Flowsheet ---
Labor Flowsheet Datetime Report Generated by CPN: 07/08/2018 13:33 Datetime: 07/08/2018 12:24 VITAL SIGNS NBP Sys/Pebbles/Mean (mmHg): 159 : 89 : 108 Pulse: 59 LaborFlag: Labor Datetime: 07/08/2018 08:30 SpO2 (%): 100 Datetime: 07/06/2018 11:50 Membranes Ruptured Date/Time: 07/06/2018 02:30 Amniotic Fluid Odor: Normal Datetime: 07/06/2018 11:15 FHR Baseline Rate : 130 Variability: Moderate 6-25 bpm Accelerations: 10X10 Decelerations: Prolonged Actions for Decelerations: Oxygen Applied Category: Category II Comments: FHR drop with pushing. Slow to return to baseline. PATIENT CARE Oxygen Amount (LPM): 10 Oxygen Method: Nasal Cannula Datetime: 07/06/2018 11:14 UTERINE ACTIVITY Monitor Mode: External Monitor Interventions for UA: [place] Adjusted Frequency (min): 5-7 Quality: Moderate Duration (sec): 40-60 Pattern: Normal: <= 5 Contractions in 10 Minutes Resting Tone (Palpate): Relaxed FHR Baseline Changes: Bradycardia Datetime: 07/06/2018 11:09 Pushing Position: Pushing with Contractions Datetime: 07/06/2018 11:06 STAGE 2 Pushing: Urge to Push; Refusing to Push Pushing Progress: Descent with Pushing Stage 2 Comments: Moving baby with pushing. Needs intense coaching. Datetime: 07/06/2018 11:01 Pitocin Checklist: At Least 1 Acceleration of 15 bpm x 15 Seconds in 30 Minutes or Adequate Variabi lity Contraction Comments: Attempting to have pt push with ctx. n Pt refusing Datetime: 07/06/2018 10:38 Stage of : Labor Provider Reviewed Strip: No Strip Reviewed by: jose COMMUNICATION Communication: RN at Bedside; RN Reviewed Strip Provider Notified (Name): Twila Lan Notification Reason: Status Update Communication Comments: Provider notified pt complete and please come Datetime: 07/06/2018 10:37 VAGINAL EXAM Dilatation (cm): 10.0 Station: 2 Exam by: kh Datetime: 07/06/2018 10:00 Temperature (C): 37.0 ASSESSMENT A Monitor Mode: External US Monitor Interventions for FHR: Ultrasound Adjusted PAIN Pain Scale: 3 Pain Presence: Intermittent Pain Type: Cramping Pain Location: Abdomen Pain Relief Measures: Epidural Given Pain Assessment Comments: Pain improved with epidural bolus MATERNAL ASSESSMENT Level of Consciousness: Fully Conscious Headache: Denies Nausea/Vomiting: Denies Patient Position/Activity: Left Lateral Patient Care Comments: Pt moving freely in bed Anesthesia Level Check: T10- Umbilicus Datetime: 07/06/2018 09:30 Effacement (%): 100 Membrane Status: Ruptured Epidural Procedure Other: Redose Anesthesia Comments: Anesthesia called for continued l low abd pain Datetime: 07/06/2018 09:00 Pain Goal: 0 Pain Coping: Writhing Comfort Measures: Breathing/Relaxation; Coaching Datetime: 07/06/2018 08:00 Vaginal Bleeding: Normal Show Procedures: Sterile Vag Exam I/O Interventions: [place] Cath Inserted Datetime: 07/06/2018 07:30 Amniotic Fluid Color: Clear Amniotic Fluid Amount: Scant Datetime: 07/06/2018 07:00 DTR's/Clonus: No Clonus RUQ Epigastric Pain: Denies Hygiene: Peripad Changed Datetime: 07/06/2018 06:25 Epidural Procedure: Test Dose Datetime: 07/06/2018 06:10 ANESTHESIA Anesthesia Plans: Epidural Datetime: 07/06/2018 05:02 TEACHING Instructional Method: Verbal Plan of Care: Plan of Care Discussed Pain Management: Epidural; Comfort Measures Datetime: 07/06/2018 04:16 MEDICATIONS Analgesics/Sedatives: Fentanyl (mcg) @ 50 Datetime: 07/06/2018 04:00 Temperature Route: Oral Datetime: 07/06/2018 02:55 Respirations: 16 Breath Sounds, Left: Clear and Equal Breath Sounds, Right: Clear and Equal Datetime: 07/06/2018 02:40 Membranes Rupture Method: Spontaneous Datetime: 07/05/2018 23:02 Cervical Ripening Agents: Cytotec @ Datetime: 07/05/2018 23:00 Resting Tone IUP (mmHg): Datetime: 07/05/2018 17:03 Cervix, Consistency: Soft Datetime: 07/05/2018 16:35 Vital Sign Comments: patient BP may be attributed to environment, encouraged relaxation, decreased stimulation Datetime: 07/05/2018 08:45 Medication Comments: buccal
== END 2018-07-08 12:45 | disposition home or self-care (01) | DRG 807 ==
LOC: WFO 07:41 → FBP 07:44 → WFO 07:45 → FBP 07:46 → OBSVTOIN 07-06 02:40
PROVIDERS: ADMIT Nurse Practitioner Obstetrics & Gynecology; ATTEND Nurse Practitioner Obstetrics & Gynecology
PROC: 10E0XZZ Delivery of Products of Conception, External Approach (ICD-10-PCS; principal; 2018-07-06)
PROC: 0HQ9XZZ Repair Perineum Skin, External Approach (ICD-10-PCS; 2018-07-06)
DX: O14.94 Unspecified pre-eclampsia, complicating childbirth (principal); Z37.0 Single live birth; O99.214 Obesity complicating childbirth; O70.0 First degree perineal laceration during delivery; O69.9XX0 Labor and delivery complicated by cord complication, unspecified, not applicable or unspecified; O99.52 Diseases of the respiratory system complicating childbirth; J45.990 Exercise induced bronchospasm; Z3A.39 39 weeks gestation of pregnancy; Z79.51 Long term (current) use of inhaled steroids
CPT/HCPCS: 36415; 80053; 82570; 83615; 84156; 84450; 84550; 85025; 85384; A9270; G0378; G0379; J7120

== ENCOUNTER 2018-12-16 18:15 | Emergency (ER) | payer OTHER, BC ==
[2018-12-16 20:02] LABS: BASOPHILS % (AUTO) 0.3 %; EOSINOPHILS % (AUTO) 0.3 %; HGB - HEMOGLOBIN 12.8 g/dL (12.0-16.0); LYMPHOCYTES # (AUTO) 1.7 10^3/uL (1.5-3.5); LYMPHOCYTES % (AUTO) 18.5 %; MEAN CORPUSCULAR HEMOGLOBIN 28.6 pg (27.0-31.0); MEAN CORPUSCULAR HGB CONC 33.2 g/dL (32.0-36.0); MEAN CORPUSCULAR VOLUME 86.2 fL (81.0-99.0); MEAN PLATELET VOLUME 9.5 fL (7.9-10.8); MONOCYTES # (AUTO) 0.9 10^3/uL (0.0-1.0); MONOCYTES % (AUTO) 9.4 %; NEUTROPHILS # (AUTO) 6.4 10^3/uL (1.5-6.6); NEUTROPHILS % (AUTO) 71.1 %; PLT - PLATELET COUNT 292 10^3/uL (130-450); RED BLOOD COUNT 4.48 10^6/uL (4.20-5.40); RED CELL DISTRIBUTION WIDTH 12.6 % (12.0-15.0)
[2018-12-16 20:09] VITALS: BP 131/94
--- NOTE | 2018-12-16 20:15 | ED Physician Documentation ---
PD HPI HEADACHE - Stated complaint Stated Complaint: HEADACHE/NAUSEA - Chief complaint Chief Complaint: Fever - History obtained from History obtained from: Patient, Family - History of Present Illness Timing - onset: Today Timing - onset during: Rest Timing - duration: Hours Timing - details: Abrupt onset, Now resolved Pain level max: 9 Pain level now: 2 Worst headache ever?: No: Worst headache ever? Location: Back, Right Quality: Throbbing Associated symptoms: Fever, Nausea. No: Stiff neck, Vomiting, Weakness, Numbness, Syncope, Seizure, Eye pain, Vision changes Improved by: Rest, Dark room, Quiet Contributing factors: No: Anticoagulated Similar symptoms before: Diagnosis (migraine) Recently seen: Not recently seen - Additional information Additional information: Previously well 23-year-old female with a history of migraine headache is developed a headache today. She is been sick over the past week with a fever on and off and she has 2 children who are sick as well with fever. They both attend daycare. She does not have cough or phlegm production she does not have nasal congestion and she denies any pain in her ears or sinuses. She denies sore throat. She has had some nausea she has not vomited. The patient came to the emergency department with a 9 out of 10 headache and nausea. She has a history of migraine. After arrival to the emergency department both her fever and her migraine resolved. She is currently without symptoms. Review of Systems Constitutional: reports: Fever, Myalgias, Fatigue Eyes: denies: Decreased vision Ears: denies: Ear pain Nose: denies: Rhinorrhea / runny nose, Congestion Throat: denies: Dental pain / toothache, Sore throat Cardiac: denies: Chest pain / pressure, Palpitations Respiratory: denies: Dyspnea, Cough GI: reports: Nausea. denies: Abdominal Pain, Vomiting, Constipation, Diarrhea : denies: Dysuria, Frequency Musculoskeletal: denies: Neck pain, Back pain, Extremity pain Neurologic: reports: Headache. denies: Generalized weakness, Focal weakness, Numbness, Head injury, LOC PD PAST MEDICAL HISTORY - Past Medical History Past Medical History: Yes Respiratory: Asthma - Past Surgical History Past Surgical History: No - Present Medications Home Medications: Ambulatory Orders Medication Instructions Recorded Confirmed Albuterol Sulf [Ventolin Hfa 2 puffs INH Q4H PRN 07/17/17 07/05/18 Inhaler] - Allergies Allergies/Adverse Reactions: Allergies Allergy/AdvReac Type Severity Reaction Status Date / Time amoxicillin [Amoxicillin] Allergy Hives Verified 12/16/18 18:22 - Social History Does the pt smoke?: No Smoking Status: Never smoker Does the pt drink ETOH?: No Does the pt have substance abuse?: No - Immunizations Immunizations are current?: Yes - POLST Patient has POLST: No PD ED PE NORMAL - Vitals Vital signs reviewed: Yes (febrile and hypertensive ) - General General: Alert and oriented X 3, No acute distress, Well developed/nourished - HEENT HEENT: Atraumatic, PERRL, EOMI, Ears normal, Moist mucous membranes, Pharynx benign, Dentition benign - Neck Neck: Supple, no meningeal sign, No bony TTP - Cardiac Cardiac: RRR, No murmur - Respiratory Respiratory: No respiratory distress, Clear bilaterally - Abdomen Abdomen: Normal bowel sounds, Soft, Non tender - Back Back: No CVA TTP, No spinal TTP - Derm Derm: Normal color, Warm and dry, No rash - Extremities Extremities: No deformity, No edema - Neuro Neuro: Alert and oriented X 3, 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, No motor deficit, No sensory deficit, Normal speech Eye Opening: Spontaneous Motor: Obeys Commands Verbal: Oriented GCS Score: 15 - Psych Psych: Normal mood, Normal affect Results - Vitals Vitals: Vital Signs - 24 hr 12/16/18 12/16/18 18:19 20:05 Temperature 38.3 C H 37.1 C Heart Rate 86 96 Respiratory 18 18 Rate Blood Pressure 135/99 H 131/94 H O2 Saturation 99 99 Oxygen O2 Source Room air - Labs Labs: Laboratory Tests 12/16/18 19:53 WBC 9.0 RBC 4.48 Hgb 12.8 Hct 38.6 MCV 86.2 MCH 28.6 MCHC 33.2 RDW 12.6 Plt Count 292 MPV 9.5 Neut # (Auto) 6.4 Lymph # (Auto) 1.7 [place] # (Auto) 0.9 Eos # (Auto) 0.0 Baso # (Auto) 0.0 Absolute Nucleated RBC 0.00 Nucleated RBC % 0.0 PD MEDICAL DECISION MAKING - ED course Complexity details: reviewed old records, reviewed results, re-evaluated patient, considered differential, d/w patient, d/w family ED course: 23-year-old female with a history of migraines appears to have resolved her migraine today prior to my evaluation. She has had a fever on and off for the past week and has 2 children who have been sick with fever as well. She has no other specific symptoms and her fever has resolved while she is here. She is diagnosed with a viral syndrome she is instructed to use Tylenol and extra flui ds and expect resolution. Departure - Departure Disposition: 01 Home, Self Care Clinical Impression: Viral syndrome Condition: Stable Instructions: ED Viral Syndrome Follow-Up: Sergei Osei DO [Primary Care Provider] -
[2018-12-16 20:16] LABS: ALBUMIN 4.5 g/dL (3.2-5.5); ALBUMIN/GLOBULIN RATIO 1.2 (1.0-2.2); BILIRUBIN,TOTAL 0.5 mg/dL (0.2-1.0); CALCIUM 9.2 mg/dL (8.5-10.3); CREATININE 0.8 mg/dL (0.4-1.0); TOTAL PROTEIN 8.2 g/dL (6.7-8.2)
== END 2018-12-16 20:21 | disposition home or self-care (01) ==
LOC: ED 18:15
DX: B34.9 Viral infection, unspecified (principal); Z86.69 Personal history of other diseases of the nervous system and sense organs
CPT/HCPCS: 36415; 80053; 83690; 85025; 99282; 99283

== ENCOUNTER 2020-06-05 07:00 | Outpatient (CLI) | payer BC, OTHER | END 2020-06-05 23:59 | disposition home or self-care (01) | LOC: LAB.N 07:00 | PROVIDERS: ATTEND Family Medicine | DX: R39.9 Unspecified symptoms and signs involving the genitourinary system (principal) | CPT/HCPCS: 87086 ==

== ENCOUNTER 2020-06-24 08:00 | Outpatient (CLI) | payer OTHER ==
[2020-06-24 18:00] LABS: BASOPHILS % (AUTO) 0.3 %; EOSINOPHILS % (AUTO) 0.4 %; HCT - HEMATOCRIT 41.9 % (37.0-47.0); HGB - HEMOGLOBIN 13.8 g/dL (12.0-16.0); LYMPHOCYTES # (AUTO) 2.6 10^3/uL (1.5-3.5); LYMPHOCYTES % (AUTO) 24.9 %; MEAN CORPUSCULAR HEMOGLOBIN 29.9 pg (27.0-31.0); MEAN CORPUSCULAR HGB CONC 32.9 g/dL (32.0-36.0); MEAN CORPUSCULAR VOLUME 90.9 fL (81.0-99.0); MEAN PLATELET VOLUME 10.7 fL (7.9-10.8); MONOCYTES # (AUTO) 0.6 10^3/uL (0.0-1.0); MONOCYTES % (AUTO) 5.6 %; NEUTROPHILS # (AUTO) 7.3 10^3/uL (1.5-6.6); NEUTROPHILS % (AUTO) 68.5 %; PLT - PLATELET COUNT 378 10^3/uL (130-450); RED BLOOD COUNT 4.61 10^6/uL (4.20-5.40); WHITE BLOOD COUNT 10.6 x10^3/uL (4.8-10.8)
[2020-06-24 18:15] LABS: ALBUMIN 4.6 g/dL (3.2-5.5); ALBUMIN/GLOBULIN RATIO 1.3 (1.0-2.2); BILIRUBIN,TOTAL 0.5 mg/dL (0.2-1.0); CALCIUM 9.5 mg/dL (8.5-10.3); CREATININE 0.8 mg/dL (0.4-1.0); TOTAL PROTEIN 8.1 g/dL (6.7-8.2)
[2020-06-24 18:41] LABS: HCG,QUALITATIVE BLOOD NEGATIVE
== END 2020-06-24 23:59 | disposition home or self-care (01) ==
LOC: LAB.WCP 08:00
PROVIDERS: ATTEND Family Medicine
DX: K58.9 Irritable bowel syndrome, unspecified (principal); R11.0 Nausea
CPT/HCPCS: 36415; 80053; 83690; 84703; 85025

== ENCOUNTER 2020-08-22 07:17 | Emergency (ER) | payer OTHER ==
[2020-08-22] MEDS ORDERED: SODIUM CHLORIDE 0.9% 1,000 ML IV STA (07:50)
[2020-08-22] MEDS ORDERED: ONDANSETRON 4 MG/2 ML VIAL IVP STA (07:50)
[2020-08-22] MEDS ORDERED: ONDANSETRON ODT 4 MG TABLET TL STA (08:15)
--- NOTE | 2020-08-22 08:21 | ED Physician Documentation ---
History of Present Illness - Stated complaint Stated Complaint: N/V - Chief complaint Chief Complaint: General - History obtained from History obtained from: Patient, Family - Additonal information Additional information: Patient comes emergency department chief complaint of persistent sense of nausea for the last several days. Patient states she has had this recurrently over the past year and that she feels that she has anxiety that contributes to it. Patient has no known history of GERD or peptic ulcer disease. She denies abdominal pain. She states the episodes happen approximately every 2 weeks and last anywhere from a day to several days. She states she has been told previously that she had a viral illness, though given the regularity of episodes, she does not think so. The patient is not known to be . She is currently off her control, but her last period was 2 weeks ago. Patient states this episode is consistent symptomatically with previous episodes. Her main concern today is that she keeps missing work and she cannot get into see her primary doctor until October 13. Patient states that she was started on Lexapro 4 days ago for anxiety, but then began to have nausea that evening. She was told by Dr. Shea, who she saw instead of her primary doctor Dr. Osei, to hold the Lexapro until her stomach is feeling better. Patient has a new prescription for duloxetine which she is supposed to start instead of the Lexapro. Patient has not yet started the duloxetine because she is still feeling nauseated. Patient states that she vomited several times the morning after starting the Lexapro, but then was quite a bit better yesterday. She states she was able to hold food down except for a banana, which she vomited up. She is also been able to drink plenty of fluids. Patient states that this morning, she was able to eat some crackers and chicken noodle soup without issue, but then tried to eat a banana again and vomited this. She states she has been feeling quite hungry each day, but just is afraid that she will vomit if she tries to eat. No fevers, chills, or dysuria. No abdominal pain. Review of Systems Ten Systems: 10 systems reviewed and negative Constitutional: reports: Reviewed and negative. denies: Fever Eyes: reports: Reviewed and negative Ears: reports: Reviewed and negative Nose: reports: Reviewed and negative Throat: reports: Reviewed and negative Cardiac: reports: Reviewed and negative Respiratory: reports: Reviewed and negative GI: reports: Nausea, Vomiting. denies: Abdominal Pain : reports: Reviewed and negative Skin: reports: Reviewed and negative Musculoskeletal: reports: Reviewed and negative Neurologic: reports: Reviewed and negative Psychiatric: reports: Reviewed and negative Endocrine: reports: Reviewed and negative Immunocompromised: reports: Reviewed and negative PD PAST MEDICAL HISTORY - Past Medical History Past Medical History: Yes Respiratory: Asthma - Past Surgical History Past Surgical History: No - Present Medications Home Medications: Ambulatory Orders Medication Instructions Recorded Confirmed Albuterol Sulf [Ventolin Hfa 2 puffs INH Q4H PRN 07/17/17 08/22/20 Inhaler] DULoxetine [Cymbalta] 20 mg PO DAILY 08/22/20 08/22/20 Norgestimate-Ethinyl Estradiol 1 each PO DAILY 08/22/20 08/22/20 [[id number]-[id number] Tablet] Ondansetron Odt [Zofran] 4 mg TL Q6H PRN #20 tablet 08/22/20 - Allergies Allergies/Adverse Reactions: Allergies Allergy/AdvReac Type Severity Reaction Status Date / Time amoxicillin [Amoxicillin] Allergy Hives Verified 08/22/20 07:26 - Social History Does the pt smoke?: No Smoking Status: Never smoker Does the pt drink ETOH?: No Does the pt have substance abuse?: No - Immunizations Immunizations are current?: Yes - POLST Patient has POLST: No PD ED PE NORMAL - Vitals Vital signs reviewed: Yes - General General: Alert and oriented X 3, No acute distress - HEENT HEENT: Atraumatic, PERRL, EOMI, Moist mucous membranes - Neck Neck: Supple, no meningeal sign - Cardiac Cardiac: RRR, No murmur - Respiratory Respiratory: No respiratory distress, Clear bilaterally - Abdomen Abdomen: Soft, Non tender, Non distended - Derm Derm: Normal color, Warm and dry, No rash - Extremities Extremities: No deformity, No edema - Neuro Neuro: Alert and oriented X 3 - Psych Psych: Normal mood, Normal affect Results - Vitals Vitals: Vital Signs - 24 hr 08/22/20 07:22 Temperature 36.8 C Heart Rate 67 Respiratory 18 Rate Blood Pressure 134/82 H O2 Saturation 99 Oxygen O2 Source Room air PD MEDICAL DECISION MAKING - ED course Complexity details: considered differential, d/w patient, d/w family ED course: I discussed with the patient that her symptoms sound chronic/recurrent and that she does not have worrisome symptoms or findings, including fever or abdominal pain. Additionally, and it sounds like she has mostly been able to hold food down and more importantly, fluids. The patient states that she has had good success with Zofran in the past, and is given a dose here. I do not find evidence of an emergent condition, and I do not feel that there is any work-up that will be of benefit in the ED. I will give the patient a prescription for oral dissolving Zofran at home. We have discussed that she should try to get on a cancellation list for her primary doctor's office. Her does work at the same clinic as Dr. Osei, and has been working on this. As soon as the patient's nausea is better, she may start her duloxetine. We have discussed the usual indications for return. Departure - Departure Disposition: 01 Home, Self Care Clinical Impression: Anxiety Nausea & vomiting Qualifiers: Vomiting type: bilious vomiting Qualified Code(s): R11.14 - Bilious vomiting Condition: Stable Instructions: ED Nausea Vomiting Prescriptions: Ondansetron Odt [Zofran] 4 mg TL Q6H PRN #20 tablet PRN Reason: Nausea / Vomiting
[2020-08-22 08:27] VITALS: BP 115/70
== END 2020-08-22 08:33 | disposition home or self-care (01) ==
LOC: ED 07:17
DX: F41.9 Anxiety disorder, unspecified (principal); R11.14 Bilious vomiting
CPT/HCPCS: 99282; 99284; Q0162

== ENCOUNTER 2020-09-16 12:00 | Outpatient (CLI) | payer OTHER ==
[2020-09-16 17:54] LABS: BASOPHILS % (AUTO) 0.3 %; EOSINOPHILS % (AUTO) 0.1 %; HCT - HEMATOCRIT 43.6 % (37.0-47.0); HGB - HEMOGLOBIN 13.9 g/dL (12.0-16.0); LYMPHOCYTES # (AUTO) 2.1 10^3/uL (1.5-3.5); LYMPHOCYTES % (AUTO) 19.6 %; MEAN CORPUSCULAR HEMOGLOBIN 29.6 pg (27.0-31.0); MEAN CORPUSCULAR HGB CONC 31.9 g/dL (32.0-36.0); MEAN PLATELET VOLUME 10.4 fL (7.9-10.8); MONOCYTES # (AUTO) 0.5 10^3/uL (0.0-1.0); MONOCYTES % (AUTO) 4.7 %; NEUTROPHILS # (AUTO) 7.9 10^3/uL (1.5-6.6); NEUTROPHILS % (AUTO) 74.9 %; PLT - PLATELET COUNT 404 10^3/uL (130-450); RED BLOOD COUNT 4.69 10^6/uL (4.20-5.40); WHITE BLOOD COUNT 10.5 x10^3/uL (4.8-10.8)
[2020-09-16 18:14] LABS: ALBUMIN 4.8 g/dL (3.2-5.5); ALBUMIN/GLOBULIN RATIO 1.5 (1.0-2.2); BILIRUBIN,TOTAL 0.9 mg/dL (0.2-1.0); CALCIUM 9.3 mg/dL (8.5-10.3); CREATININE 0.7 mg/dL (0.4-1.0); POTASSIUM 3.9 mmol/L (3.5-5.0); TOTAL PROTEIN 8.1 g/dL (6.7-8.2)
== END 2020-09-16 12:01 | disposition home or self-care (01) ==
LOC: LAB.N 12:00
PROVIDERS: ATTEND Family Medicine
DX: R10.811 Right upper quadrant abdominal tenderness (principal); K58.9 Irritable bowel syndrome, unspecified; R11.0 Nausea
CPT/HCPCS: 36415; 80053; 85025

== ENCOUNTER 2020-09-17 19:02 | Emergency (ER) | payer OTHER ==
[2020-09-18] MEDS ORDERED: IOVERSOL 320 100 ML VIAL IVP ONE (00:52)
[2020-09-18] MEDS: IOVERSOL 320 100 ML VIAL IVP ONE (02:05)
--- NOTE | 2020-09-18 03:03 | ED Physician Documentation ---
History of Present Illness - Stated complaint Stated Complaint: MHE - Chief complaint Chief Complaint: MHE - History obtained from History obtained from: Patient, Family - Additonal information Additional information: Patient comes emergency department chief complaint of ongoing nausea and vomiting with any food intake for the last couple of months. The patient has been seen here previously for this problem and initially, was thought to have anxiety which was fueling some of her symptoms. She states she has had episodes of nausea and vomiting previously and has usually been able to get through them on her own. However, this 1 has persisted much longer than any other she has ever had. Her primary care physician had started her on a couple of different antianxiety medications, but patient felt that they were not agreeing with her which prompted her last visit to the emergency department. Since that visit, she has not tried taking anything else for anxiety. She just saw one of the physicians in her primary care physicians group within the last few days, and was started on omeprazole. Labs were drawn yesterday which patient has not seen the results of yet. Patient states she has used Zofran for the nausea in the past and this is helped somewhat, but she is all out of this. She states she usually wakes up in the morning and tries to eat at 3 or 5 AM then go back to sleep, but she will wake up a couple hours later and either vomit or dry heaves. Patient states it is not till the middle of the day that she can usually get an actual meal in. Patient states that some days are better than they were worse and she is concerned she is not getting enough nutrition. She denies suicidal ideation. She does have a sense of anxiety in general but especially about her medical condition currently, and states that she is also been feeling somewhat depressed about the ongoing nausea and vomiting. She has not seen a radiologist or a mental health professional. No other complaints at this time. Review of Systems Ten Systems: 10 systems reviewed and negative Constitutional: reports: Reviewed and negative Eyes: reports: Reviewed and negative Ears: reports: Reviewed and negative Nose: reports: Reviewed and negative Throat: reports: Reviewed and negative Cardiac: reports: Reviewed and negative Respiratory: reports: Reviewed and negative GI: reports: Nausea, Vomiting : reports: Reviewed and negative Skin: reports: Reviewed and negative Musculoskeletal: reports: Reviewed and negative Neurologic: reports: Reviewed and negative Psychiatric: reports: Reviewed and negative Endocrine: reports: Reviewed and negative Immunocompromised: reports: Reviewed and negative PD PAST MEDICAL HISTORY - Past Medical History Past Medical History: Yes Respiratory: Asthma Psych: Depression, Anxiety - Past Surgical History Past Surgical History: No - Present Medications Home Medications: Ambulatory Orders Medication Instructions Recorded Confirmed Albuterol Sulf [Ventolin Hfa 2 puffs INH Q4H PRN 07/17/17 09/17/20 Inhaler] DULoxetine [Cymbalta] 20 mg PO DAILY 08/22/20 09/17/20 Norgestimate-Ethinyl Estradiol 1 each PO DAILY 08/22/20 09/17/20 [[id number]-[id number] Tablet] Ondansetron Odt [Zofran] 4 mg TL Q6H PRN #20 tablet 08/22/20 09/17/20 Ondansetron Odt [Zofran] 4 mg TL Q6H PRN #30 tablet 09/18/20 - Allergies Allergies/Adverse Reactions: Allergies Allergy/AdvReac Type Severity Reaction Status Date / Time amoxicillin [Amoxicillin] Allergy Hives Verified 09/17/20 19:14 - Social History Does the pt smoke?: No Smoking Status: Never smoker Does the pt drink ETOH?: No Does the pt have substance abuse?: No - Immunizations Immunizations are current?: Yes - POLST Patient has POLST: No PD ED PE NORMAL - Vitals Vital signs reviewed: Yes - General General: Alert and oriented X 3, No acute distress, Well developed/nourished - HEENT HEENT: Atraumatic, PERRL, EOMI, Moist mucous membranes - Neck Neck: Supple, no meningeal sign - Cardiac Cardiac: RRR, No murmur - Respiratory Respiratory: No respiratory distress, Clear bilaterally - Abdomen Abdomen: Soft, Non tender, Non distended - Back Back: No CVA TTP - Derm Derm: Normal color, Warm and dry, No rash - Extremities Extremities: No deformity, No edema - Neuro Neuro: Alert and oriented X 3, counter pocket 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, Normal speech, Other - Psych Psych: Normal mood, Normal affect Results - Vitals Vitals: Vital Signs - 24 hr 09/17/20 09/17/20 09/17/20 19:14 19:38 22:09 Temperature 36.5 C 99.4 C H 37.0 C Heart Rate 74 60 61 Respiratory 16 14 16 Rate Blood Pressure 135/87 H 119/74 120/75 O2 Saturation 99 99 99 09/18/20 03:18 Temperature 36.9 C Heart Rate 65 Respiratory 16 Rate Blood Pressure 122/72 O2 Saturation 99 Oxygen O2 Source Room air - Rads (name of study) ct abd/pelvis Radiology: Final report received, EMP read indepedently, See rad report (neg) PD MEDICAL DECISION MAKING - ED course Complexity details: reviewed results, re-evaluated patient, considered differential, d/w patient, d/w family ED course: I discussed at length with the patient that these have been fairly chronic, taya oing symptoms, and that we are unlikely to come up with an answer in the emergency department. The patient has already been in touch with her primary care physician's office who has done laboratory work and apparently is getting her set up for an ultrasound of the right upper quadrant. I have discussed with her that what I think she probably really needs is to see both radiologist and a psychiatrist to try to sort out what is going on. It may be helpful to consider endoscopy for further evaluation of a nonpsychiatric cause of the patient's symptoms. I discussed with the patient that as far as what can be done in the emergency Department, we could do some imaging here although I do not feel it is likely that emergent ultrasound will yield anything. I have recommended CT scan to evaluate not only the gallbladder but the other upper abdominal structures to make sure that the patient does not have some other serious condition, such as a tumor. I have reviewed her labs and there are no Concerning abnormalities. Was done in the emergency department and unremarkable. Patient was given a liter of 0.9 normal saline as well as a dose of Zofran. We have discussed once again the need for follow-up, as well as the usual indications for return. Departure - Departure Disposition: 01 Home, Self Care Clinical Impression: Vomiting Qualifiers: Vomiting type: unspecified Vomiting Intractability: non-intractable Nausea presence: with nausea Qualified Code(s): R11.2 - Nausea with vomiting, unspecified Condition: Stable Instructions: ED Nausea Vomiting Follow-Up: Carlos Varghese MD [Physician No Access] - LANCE SOARES MD [Physician No Access] - PANCHO THOMAS MD [Physician No Access] - BELEN JOSHI MD [Physician No Access] - Hi Ardon MD [Physician No Access] - Prescriptions: Ondansetron Odt [Zofran] 4 mg TL Q6H PRN #30 tablet PRN Reason: Nausea / Vomiting Comments: Your laboratory studies from yesterday were reviewed and all look pretty good. There were no abnormalities of concern. Your CT scan tonight also looks good, with no evidence of any inflammation or structural abnormality of your organs. As we have discussed, it is very important that you talk to your doctor about getting a referral to gastroenterology, as well as that you follow-up with psychiatry to determine exactly what role anxiety and depression may be playing in your symptoms. Please take the Zofran as needed to help with your nausea, and continue the omeprazole that you are on. Please keep your appointment coming up in October with your primary doctor, as well. Even if you do not feel like eating, please try to eat whatever foods you do find to be agreeable with you, once your nausea medicine has kicked in. Discharge Date/Time: 09/18/20 03:52
[2020-09-18 03:20] VITALS: BP 122/72
--- NOTE | 2020-09-18 07:55 | CT Report ---
PROCEDURE: Abdomen/Pelvis W INDICATIONS: abd pain/vomiting CONTRAST: IV CONTRAST: Optiray 320 ml: 100 PO CONTRAST: *NO PO CONTRAST TECHNIQUE: After the administration of weight appropriate dose of intravenous contrast, 5 mm thick sections acqu ired from the diaphragms to the symphysis. 5 mm thick coronal and sagittal reformats were acquired. For radiation dose reduction, the following was used: automated exposure control, adjustment of mA and/or kV according to patient size. COMPARISON: 10/24/2015. FINDINGS: Image quality: Excellent. ABDOMEN: Lung bases: Lung bases are clear. Heart size is normal. Solid organs: Liver and spleen are normal in size and enhancement. Gallbladder is unremarkable. Bi liary system is non dilated. Pancreas enhances normally. No adrenal nodules. Kidneys demonstrate n ormal size and enhancement, without hydronephrosis. Peritoneum and bowel: Bowel loops demonstrate normal wall thickness and caliber. No free fluid or a ir. Normal appendix Nodes and vessels: No retroperitoneal or mesenteric adenopathy by size criteria. Aorta and inferior vena cava are normal in size. Miscellaneous: No ventral hernias. PELVIS: Genitourinary: Bladder wall thickness is normal. Miscellaneous: No inguinal hernias or adenopathy. Bones: No suspicious bony lesions. No acute vertebral body compression fractures. IMPRESSION: CT abdomen and pelvis without acute abnormalities. Normal appendix. No evidence for obstruction. No significant discrepancy with initial interpretation by overnight radiologist. Reviewed by: Morris Scherer MD on 09/18/2020 7:53 AM PDT Approved by: Morris Scherer MD on 09/18/2020 7:53 AM PDT Station ID: [id number]
== END 2020-09-18 03:52 | disposition home or self-care (01) ==
LOC: ED 19:02
DX: R11.2 Nausea with vomiting, unspecified (principal); F41.9 Anxiety disorder, unspecified; F32.9 Major depressive disorder, single episode, unspecified
CPT/HCPCS: 74177; 99284; Q9967

== ENCOUNTER 2020-12-30 07:56 | Outpatient (CLI) | payer OTHER ==
--- NOTE | 2021-01-01 13:56 | Ultrasound Report ---
PROCEDURE: Abdomen Limited INDICATIONS: RIGHT UPPER QUAD ABD TENDERNESS TECHNIQUE: Real-time scanning was performed of the abdominal and retroperitoneal organs, with image documentatio n. COMPARISON: CT Abdomen and Pelvis 09/18/20 FINDINGS: Liver: Liver is normal in size and increased in echotexture. Gallbladder: No stones. Wall thickness is normal, measuring 1.2 mm. Biliary ducts: Intrahepatic bile ducts are non-dilated. Extrahepatic bile duct caliber measures mm. Normal is 6-7 mm or less in diameter, or 10 mm or less post-cholecystectomy. Pancreas: Visualized portions of the pancreas are sonographically normal. Spleen: Spleen is normal in size and homogeneous in echotexture. Kidneys: Right kidney measures 10.0 cm long. No hydronephrosis or nephrolithiasis. No solid masses . IMPRESSION: Gallbladder is unremarkable. Reviewed by: Cyndy Gilbert MD on 01/01/2021 1:55 PM PDT Approved by: Cyndy Gilbert MD on 01/01/2021 1:55 PM PDT Station ID: [id number]
== END 2020-12-30 07:57 | disposition home or self-care (01) ==
LOC: DI 07:56
PROVIDERS: ATTEND Family Medicine
DX: R10.811 Right upper quadrant abdominal tenderness (principal); R11.0 Nausea

== ENCOUNTER 2022-02-02 17:11 | Outpatient (CLI) | payer OTHER ==
[2022-02-02 21:04] LABS: BASOPHILS % (AUTO) 0.3 %; EOSINOPHILS # (AUTO) 0.1 10^3/uL (0.0-0.7); EOSINOPHILS % (AUTO) 1.1 %; HCT - HEMATOCRIT 38.1 % (37.0-47.0); HGB - HEMOGLOBIN 12.8 g/dL (12.0-16.0); LYMPHOCYTES # (AUTO) 3.9 10^3/uL (1.5-3.5); LYMPHOCYTES % (AUTO) 35.3 %; MEAN CORPUSCULAR HEMOGLOBIN 29.7 pg (27.0-31.0); MEAN CORPUSCULAR HGB CONC 33.6 g/dL (32.0-36.0); MEAN CORPUSCULAR VOLUME 88.4 fL (81.0-99.0); MEAN PLATELET VOLUME 10.5 fL (7.9-10.8); MONOCYTES % (AUTO) 8.7 %; NEUTROPHILS % (AUTO) 54.4 %; PLT - PLATELET COUNT 370 10^3/uL (130-450); RED BLOOD COUNT 4.31 10^6/uL (4.20-5.40); RED CELL DISTRIBUTION WIDTH 12.8 % (12.0-15.0); WHITE BLOOD COUNT 10.9 x10^3/uL (4.8-10.8)
[2022-02-02 21:20] LABS: ALBUMIN 4.3 g/dL (3.2-5.5); ALBUMIN/GLOBULIN RATIO 1.3 (1.0-2.2); BILIRUBIN,TOTAL 0.3 mg/dL (0.2-1.0); CALCIUM 9.4 mg/dL (8.5-10.3); CREATININE 0.8 mg/dL (0.4-1.0); TOTAL PROTEIN 7.6 g/dL (6.7-8.2)
== END 2022-02-02 17:12 | disposition home or self-care (01) ==
LOC: LAB.N 17:11
PROVIDERS: ATTEND Physician Assistant
DX: Z02.89 Encounter for other administrative examinations (principal)
CPT/HCPCS: 36415; 80053; 85025

== ENCOUNTER 2022-06-16 20:20 | Outpatient (CLI) | payer OTHER ==
--- NOTE | 2022-06-17 09:31 | XRAY Report ---
PROCEDURE: Ribs w/PA Chest LT INDICATIONS: RIB PAIN,LEFT SIDED TECHNIQUE: 3 views of the left ribs were acquired, along with a single view chest. COMPARISON: None FINDINGS: Surgical changes and devices: None. Bones and chest wall: No fractures or dislocations. No suspicious bony lesions. Overlying soft tis sues appear unremarkable. Lungs and pleura: No pleural effusions or pneumothorax. Lungs appear clear. Mediastinum: Mediastinal contours appear normal. Heart size is normal. IMPRESSION: No displaced fracture. No pneumothorax. Reviewed by: Edgar Han on 06/17/2022 9:29 AM PDT Approved by: Edgar Han on 06/17/2022 9:29 AM PDT Station ID: [id number]
== END 2022-06-16 20:21 | disposition home or self-care (01) ==
LOC: DI 20:20
PROVIDERS: ATTEND Registered Nurse
DX: R07.81 Pleurodynia (principal)

== ENCOUNTER 2022-08-25 08:00 | Outpatient (CLI) | payer OTHER ==
[2022-08-25 11:32] LABS: BASOPHILS % (AUTO) 0.2 %; EOSINOPHILS # (AUTO) 0.1 10^3/uL (0.0-0.7); EOSINOPHILS % (AUTO) 0.6 %; HCT - HEMATOCRIT 37.5 % (37.0-47.0); HGB - HEMOGLOBIN 12.7 g/dL (12.0-16.0); LYMPHOCYTES # (AUTO) 2.4 10^3/uL (1.5-3.5); LYMPHOCYTES % (AUTO) 18.2 %; MEAN CORPUSCULAR HEMOGLOBIN 29.3 pg (27.0-31.0); MEAN CORPUSCULAR HGB CONC 33.9 g/dL (32.0-36.0); MEAN CORPUSCULAR VOLUME 86.6 fL (81.0-99.0); MEAN PLATELET VOLUME 9.9 fL (7.9-10.8); MONOCYTES # (AUTO) 0.8 10^3/uL (0.0-1.0); MONOCYTES % (AUTO) 6.3 %; NEUTROPHILS # (AUTO) 9.8 10^3/uL (1.5-6.6); NEUTROPHILS % (AUTO) 74.3 %; PLT - PLATELET COUNT 374 10^3/uL (130-450); RED BLOOD COUNT 4.33 10^6/uL (4.20-5.40); RED CELL DISTRIBUTION WIDTH 12.5 % (12.0-15.0); WHITE BLOOD COUNT 13.2 x10^3/uL (4.8-10.8)
[2022-08-25 12:09] LABS: ESTIMATED AVERAGE GLUCOSE 91 mg/dL (70-100); HEMOGLOBIN A1c% 4.8 % (4.27-6.07)
[2022-08-25 20:16] LABS: ALBUMIN 3.9 g/dL (3.2-5.5); BILIRUBIN,TOTAL 0.3 mg/dL (0.2-1.0); CALCIUM 8.9 mg/dL (8.5-10.3); CREATININE 0.7 mg/dL (0.4-1.0); POTASSIUM 3.8 mmol/L (3.5-5.0); TOTAL PROTEIN 7.7 g/dL (6.7-8.2)
[2022-08-26 02:08] LABS: HBsAG SCREEN Negative (Negative); HCV AB Non Reactive (Non Reactive); HIV SCREEN 4TH GENERATION Non Reactive (Non Reactive)
[2022-08-26 06:10] LABS: RPR Non Reactive (Non Reactive)
[2022-08-26 10:09] LABS: VARICELLA-ZOSTER AB IGG 1042 index (Immune >165)
== END 2022-08-25 23:59 | disposition home or self-care (01) ==
LOC: LAB 08:00
PROVIDERS: ATTEND Nurse Practitioner Obstetrics & Gynecology
DX: Z36.89 Encounter for other specified antenatal screening (principal); Z87.59 Personal history of other complications of pregnancy, childbirth and the puerperium
CPT/HCPCS: 36415; 80053; 83036; 85025; 86592; 86762; 86787; 86803; 86850; 86900; 86901; 87340; 87389

== ENCOUNTER 2022-11-05 20:49 | Outpatient (CLI) | payer OTHER ==
--- NOTE | 2022-11-06 16:20 | Ultrasound Report ---
PROCEDURE: OB Detailed Eval INDICATIONS: SUPERVISON OF OUTSIDE/PRIOR DATING DATA: Last menstrual period (LMP): 06/19/2022. LMP-based estimated date of delivery (YULIANA): 03/26/2023. First dating scan (date and location): 11/05/2022. Estimated date of delivery (YULIANA) from first dating scan: 03/27/2023. TECHNIQUE: Real-time scanning was performed of the fetus, with image documentation and biometric measurements. Endovaginal scanning: Not performed COMPARISON: None. FINDINGS: General: A single living intrauterine gestation is present. Presentation: Vertex Placenta: Placental position is anterior, without previa. Amniotic fluid index: 14.3 cm, within normal limits for gestational age. heart rate: 150 beats per minute. Maternal cervical canal: 3.4 cm long; normal length is 2.5 cm or more. biometrics: Biparietal diameter: 4.5 cm 19 weeks 5 days Head circumference: 17.5 cm 20 weeks 0 days Abdominal circumference: 15.7 cm 20 weeks 6 days Femur length: 3.0 cm 19 weeks 1 day Estimated gestational age: 19 weeks 6 days Composite gestational age from present scan: 19 weeks 5 days Estimated weight and percentile: 329 g, 58th percentile Measurement variability in biometric dating: +/- 10 days from 12-20 weeks gestation, +/- 2 weeks from 20-30 weeks gestation, +/- 3 weeks at 30 weeks gestation or later. Anatomic survey: Neuro: Ventricles are normal at less than 10 mm. Cisterna magna is normal at 3-11 mm. Cerebellum i s normal in size and morphology. Nuchal skin fold: Normal at less than 6 mm between 14 and 20 weeks gestational age. Face: Nose and lips, facial profile are normal. Spine: No evidence for spina bifida. Heart: 4-chambered heart is present. Left ventricular outflow tract unremarkable. Right ventricular outflow tract not well visualized Diaphragm: Diaphragm is intact. Stomach: Left-sided stomach is present. Kidneys: No hydronephrosis. Normal is less than 5 mm in 2nd trimester, less than 7 mm in 3rd trimester. Cord: 3 vessel cord has orthotopic insertion. Bladder: Normal in size. Extremities: All 4 extremities are visualized. IMPRESSION: 1. Single living intrauterine . 2. right ventricular outflow tract not well visualized. Attention on follow-up is recommended. 3. Otherwise normal second trimester anatomy survey. Reviewed by: Al Ponce MD on 11/06/2022 4:18 PM PDT Approved by: Al Ponce MD on 11/06/2022 4:18 PM PDT Station ID: [id number]
== END 2022-11-05 20:50 | disposition home or self-care (01) ==
LOC: DI 20:49
PROVIDERS: ATTEND Nurse Practitioner Obstetrics & Gynecology
DX: Z34.02 Encounter for supervision of normal first pregnancy, second trimester (principal); Z36.89 Encounter for other specified antenatal screening

== ENCOUNTER 2023-03-16 09:29 | Outpatient (CLI) | payer OTHER ==
[2023-03-16 09:58] LABS: BASOPHILS % (AUTO) 0.3 %; EOSINOPHILS % (AUTO) 0.4 %; HCT - HEMATOCRIT 37.5 % (37.0-47.0); HGB - HEMOGLOBIN 12.9 g/dL (12.0-16.0); LYMPHOCYTES # (AUTO) 2.8 10^3/uL (1.5-3.5); LYMPHOCYTES % (AUTO) 28.1 %; MEAN CORPUSCULAR HEMOGLOBIN 29.5 pg (27.0-31.0); MEAN CORPUSCULAR HGB CONC 34.4 g/dL (32.0-36.0); MEAN CORPUSCULAR VOLUME 85.6 fL (81.0-99.0); MEAN PLATELET VOLUME 11.6 fL (7.9-10.8); MONOCYTES # (AUTO) 0.9 10^3/uL (0.0-1.0); NEUTROPHILS # (AUTO) 6.2 10^3/uL (1.5-6.6); NEUTROPHILS % (AUTO) 61.9 %; PLT - PLATELET COUNT 285 10^3/uL (130-450); RED BLOOD COUNT 4.38 10^6/uL (4.20-5.40); RED CELL DISTRIBUTION WIDTH 13.3 % (12.0-15.0)
[2023-03-16 10:10] LABS: CREATININE,URINE 56.1 mg/dL; PROTEIN/CREATININE RATIO,URINE 0.3 (<=0.2)
[2023-03-16 10:11] LABS: ALBUMIN 3.7 g/dL (3.2-5.5); ALBUMIN/GLOBULIN RATIO 1.1 (1.0-2.2); BILIRUBIN,TOTAL 0.4 mg/dL (0.2-1.0); CALCIUM 9.3 mg/dL (8.5-10.3); CREATININE 0.8 mg/dL (0.6-1.3); POTASSIUM 4.3 mmol/L (3.5-4.5); TOTAL PROTEIN 7.1 g/dL (6.4-8.9)
[2023-03-16 12:21] VITALS: BP 139/75
--- NOTE | 2023-03-26 14:59 | PROCEDURE REPORT ---
- HPI Diagnosis/Indication for NST: Gestational Hypertension Current EDU 03/26/23 Gestation 38 Weeks and 4 Days 2 Para 1 Vital Signs Temperature 36.9 C 03/16/23 09:43 Heart Rate 69 03/16/23 09:43 Respiratory Rate 18 03/16/23 09:43 Blood Pressure 139/75 H 03/16/23 09:43 Temperature 36.9 C 03/16/23 09:43 Heart Rate 69 03/16/23 09:43 Respiratory Rate 18 03/16/23 09:43 Blood Pressure 121/82 H 03/16/23 10:40 O2 Saturation If not protocol: Oxygen Flow, liters/minute - NST Procedure NST Procedure Start Date 03/16/23 Start Time 10:05 Stop Time 10:43 Vibroacoustic Stimulation Used No Patient States Movement Yes - Results and Plan Plan: NST reactive. FHR baseline 135, moderate variability, + accels, no decels No contractions appreciated via tocometry
== END 2023-03-16 10:45 | disposition home or self-care (01) ==
LOC: WFO 09:29 → FBP 09:31 → WFO 10:45
PROVIDERS: ATTEND Nurse Practitioner Obstetrics & Gynecology
DX: O13.3 Gestational [pregnancy-induced] hypertension without significant proteinuria, third trimester (principal); Z3A.38 38 weeks gestation of pregnancy
CPT/HCPCS: 36415; 59025; 80053; 82570; 84156; 85025; 99212; 99215

== ENCOUNTER 2023-03-17 19:11 | Inpatient (IN) | payer OTHER ==
[2023-03-17] MEDS ORDERED: CARBOPROST TROMETHAMINE 250 MCG/ML AMP IM PRN (19:29)
[2023-03-17] MEDS ORDERED: SODIUM CHLORIDE FLUSH 0.9% 10 ML SYRINGE IVP PRN (19:29)
[2023-03-17] MEDS ORDERED: OXYTOCIN 10 UNIT/ML VIAL IM PRN (19:29)
[2023-03-17] MEDS ORDERED: METHYLERGONOVINE 0.2 MG/ML VIAL IM PRN (19:29)
[2023-03-17] MEDS ORDERED: lidocaine 1% 20 ML MDV ID PRN (19:29)
[2023-03-17] MEDS ORDERED: miSOPROStoL 200 MCG TABLET BC PRN (19:29)
[2023-03-17] MEDS ORDERED: OXYTOCIN/SODIUM CHLORIDE 500 ML IV PRN (19:29)
[2023-03-17] MEDS ORDERED: TRANEXAMIC ACID IN NACL 1,000 MG/100 ML BAG IV PRN (19:29)
[2023-03-17] MEDS ORDERED: AMPICILLIN 2 GM in SODIUM CHLORIDE 0.9% MINIBAG 100 ML IV SCH (20:00)
[2023-03-17 20:42] LABS: BASOPHILS % (AUTO) 0.4 %; EOSINOPHILS # (AUTO) 0.1 10^3/uL (0.0-0.7); EOSINOPHILS % (AUTO) 0.6 %; HGB - HEMOGLOBIN 12.6 g/dL (12.0-16.0); LYMPHOCYTES # (AUTO) 3.7 10^3/uL (1.5-3.5); LYMPHOCYTES % (AUTO) 34.4 %; MEAN CORPUSCULAR HEMOGLOBIN 29.5 pg (27.0-31.0); MEAN CORPUSCULAR HGB CONC 34.1 g/dL (32.0-36.0); MEAN CORPUSCULAR VOLUME 86.7 fL (81.0-99.0); MEAN PLATELET VOLUME 12.2 fL (7.9-10.8); MONOCYTES # (AUTO) 0.8 10^3/uL (0.0-1.0); MONOCYTES % (AUTO) 7.5 %; NEUTROPHILS # (AUTO) 6.1 10^3/uL (1.5-6.6); NEUTROPHILS % (AUTO) 56.8 %; PLT - PLATELET COUNT 283 10^3/uL (130-450); RED BLOOD COUNT 4.27 10^6/uL (4.20-5.40); RED CELL DISTRIBUTION WIDTH 13.4 % (12.0-15.0); WHITE BLOOD COUNT 10.8 x10^3/uL (4.8-10.8)
[2023-03-17] MEDS ORDERED: SERTRALINE 50 MG TABLET PO SCH (21:00)
--- NOTE | 2023-03-17 21:00 | HISTORY & PHYSICAL EXAMINATION ---
Admit History - Visit Reason Visit Reason: Other - : 2 Parity: 1 Premature: 0 Ectopic: 0 : 0 Care: positive: [facility] Risk/History: positive: None Complications This : positive: None Smoking Status: Never smoker - Mother's Labs Mother's Blood Type: positive: O Mother's RH: positive: Positive GBS: positive: Group B Strep Positive Rubella Status: positive: Equivocal - HPI Diagnosis/Indication for NST: Gestational Hypertension - NST Procedure NST Procedure Start Time 10:05 Stop Time 10:43 - Results and Plan Findings/Impression: FHR baseline 130s, moderate variability, + accels, no decels Contractions palpate mild intermittently with soft resting tone Meds/Allgy - Home Medications Home Medications: Ambulatory Orders Medication Instructions Recorded Confirmed Albuterol Sulf [Ventolin Hfa 2 puffs INH Q4H PRN 07/17/17 09/17/20 Inhaler] DULoxetine [Cymbalta] 20 mg PO DAILY 08/22/20 09/17/20 Norgestimate-Ethinyl Estradiol 1 each PO DAILY 08/22/20 09/17/20 [Glo-Vy-Drrwjnjo Tablet] Ondansetron Odt [Zofran] 4 mg TL Q6H PRN #20 tablet 08/22/20 09/17/20 Ondansetron Odt [Zofran] 4 mg TL Q6H PRN #30 tablet 09/18/20 - Allergies Allergies/Adverse Reactions: Allergies Allergy/AdvReac Type Severity Reaction Status Date / Time amoxicillin [Amoxicillin] Allergy Hives Verified 09/17/20 19:14 Review of Systems - Constitutional Constitutional: denies: Fatigue, Fever - Eyes Eyes: denies: Blurred vision, Spots in vision, Dipolpia - Cardiovascular Cariovascular: denies: Irregular heart rate, Palpitations, Chest pain, Edema - Respiratory Respiratory: denies: Cough, Wheezing, SOB at rest - Gastrointestinal Gastrointestinal: denies: Constipation, Diarrhea, Nausea, Vomiting - Genitourinary Genitourinary: denies: Dysuria - Integumentary Integumentary: denies: Rash, Pruritis - Neurological Neurological: denies: Headache Physical - Abdominal Exam Contraction Frequency (min/apart): occasional Contraction Intensity: positive: Mild Uterine Resting Tone: positive: Soft - Monitoring Heart Rate Baseline: 130 Strip Review: positive: Category I - Presentation Presentation: positive: Vertex - Vaginal Exam Membranes: positive: Membranes intact Dilation (in cm): 4 Effacement (%): 70 Station: positive: -3 Cervical Position: positive: Midposition - Speculum Exam Speculum Exam Performed: positive: No Findings: positive: Other Plan for Labor - Plan For Labor I expect patient to be DC'd or transferred within 96 hours.: Yes Plan for Labor: HPI: Martha is a 27yo @ 38.5wks gestation by LMP c/w 9.2wk U/S who presents to [facility] for medical induction of labor secondary to pre-eclampsia without severe features. She has consistently had borderline elevated blood pressures since 28wks gestation. Her blood pressure yesterday in the clinic was again mildly elevated and she has been taking her blood pressure at home regularly throughout her and has had intermittently mildly elevated blood pressures at home as well. She had pre-eclampsia labs drawn yesterday and they were within normal limits with the exception of a urine protein/creatinine ratio of 0.3 which meets criteria for the diagnosis of pre-eclampsia without severe features. She denies headache, visual disturbances, RUQ or epigastric pain. Upon arrival her cervix is 4/70/-3 and vertex with intact membranes. She has been a patient of [facility] for the duration of her which has remained uncomplicated. She has a history of pre-eclampsia w ithout severe features in her first and was induced at 39.6wks gestation. She is noted to be GBS positive. She is supported by her and her mom today. Dating criteria: LMP: 06/19/2022 Initial U/S @ 9.2wks c/w LMP dating Serial exams - agree campus coordinator History: Term NSVB x 1. SAB x0. G1: 07/06/2018 NSVB @ 39.6wks gestation. 10hr labor, 30 min second stage. Epidural. Female 6lb 4oz. Pre-eclampsia without severe features. Last pap 01/2022 WNL., no hx abnormal. Denies history of gonorrhea, chlamydia, genital herpes, oral herpes or any other STI. Sexual partner does NOT have HSV (oral or genital). Medical Hx: Anxiety/depression, obesity Surgical Hx: none Social Hx: Monogamous with male partner. Stopped drinking alcohol due to . Denies current use of tobacco, marijuana or other recreational drugs. Reports that she is safe in current relationship. Family Hx: Denies family history of congenital anomalies, Cystic Fibrosis or chromosomal abnormalities. Allergies: Amoxicillin Medications: PNV, Sertraline 100mg once daily, LDASA 81mg once daily course: O positive, antibody negative Rubella equivocal, Varicella immune RPR non-reactive, HIV non-reactive Hep B non-reactive, Hep C non-reactive FAS WNL with the exception of poor visualization of right ventricular outflow tract. Anterior placenta, no previa. Size c/w dating. EFW 58%tile. 3VC. GEN WNL. F/u FAS WNL Glucola 128 Tdap vaccine 01/06/2023 COVID vaccine x 3, booster 02/27/2023 RSV vaccine 02/27/2023 GBS POSITIVE Physical exam: Normocephalic, atraumatic Heart RRR w/o M/G/R Lungs CTAB Abdomen gravid, soft, nontender. EFW 2800g FHR baseline 130s, moderate variability, + accels, no decels Contractions palpate mild intermittently with soft resting tone SVE 4/70/-3, vertex. AROM 2046 for a moderate amount of clear fluid Bilateral LE's no edema. Mood is good. Assessment: 27yo @ 38.5wks gestation by LMP c/w 9.6wk U/S Pre-eclampsia without severe features GBS positive FHR Category I Plan: Admit to [facility] for medical induction of labor secondary to pre-eclampsia without severe features. AROM performed. Expectant management x 8hr with initiation of pitocin at that time if needed. Initiate Ampicillin for GBS prophylaxis per protocol. Continuous monitoring. Jacuzzi PRN. Nitrous oxide PRN. Epidural per maternal request. Anticipate . Reviewed patient clinic picture and plan of care with call or contact centre coach physician who is in agreement with above plan.
[2023-03-17] MEDS: LACTATED RINGERS 1,000 ML IV SCH (21:28)
[2023-03-17 21:32] LABS: ALBUMIN 3.5 g/dL (3.2-5.5); ALBUMIN/GLOBULIN RATIO 1.1 (1.0-2.2); BILIRUBIN,TOTAL 0.3 mg/dL (0.2-1.0); CALCIUM 9.4 mg/dL (8.5-10.3); CREATININE 0.7 mg/dL (0.6-1.3); POTASSIUM 3.8 mmol/L (3.5-4.5); TOTAL PROTEIN 6.8 g/dL (6.4-8.9)
[2023-03-17] MEDS: SERTRALINE 50 MG TABLET PO SCH (22:52)
--- NOTE | 2023-03-18 00:29 | ANESTHESIA ---
Pre-Anesthesia VS, & Labs - Diagnosis active labor - Procedure labor epidural Vital Signs: Temp Pulse Resp BP Pulse Ox O2 Flow Rate 36.6 C 73 18 126/81 H 03/17/23 21:05 03/17/23 21:05 03/17/23 21:05 03/17/23 21:05 Height: 5 ft 3 in Weight (kg): 94.801 kg Body Mass Index: 37.0 BMI Classification: Obese - NPO Other - Is Patient ?: Yes - Lab Results Current Lab Results: Laboratory Tests 03/17/23 20:20: Sodium 136, Potassium 3.8, Chloride 107, Carbon Dioxide 20 L, Anion Gap 9.0, BUN 11, Creatinine 0.7, Estimated GFR (MDRD) 99, Glucose 125 H, Calcium 9.4, Total Bilirubin 0.3, AST 27, ALT 15, Alkaline Phosphatase 219 H, Total Protein 6.8, Albumin 3.5, Globulin 3.3, Albumin/Globulin Ratio 1.1 03/17/23 20:20: Blood Type O POSITIVE, Antibody Screen NEGATIVE 03/17/23 20:20: WBC 10.8, RBC 4.27, Hgb 12.6, Hct 37.0, MCV 86.7, MCH 29.5, MCHC 34.1, RDW 13.4, Plt Count 283, MPV 12.2 H, Neut # (Auto) 6.1, Lymph # (Auto) 3.7 H, [place] # (Auto) 0.8, Eos # (Auto) 0.1, Baso # (Auto) 0.0, Absolute Nucleated RBC 0.00, Nucleated RBC % 0.0 Fish Bones: 03/17/23 20:20 03/17/23 20:20 Home Medications and Allergies Active Medications Carboprost Tromethamine (Carboprost Tromethamine 250 Mcg/Ml Amp) 250 mcg IM Q15M PRN PRN Reason: Step 4: Hemorrhage protocol Stop: 03/22/23 19:32 Oxytocin/Sodium Chloride (Pitocin/Sodium Chloride) 500 mls @ 999 mls/hr IV PRN PRN; Protocol PRN Reason: POST- HEMORR PREVENTION Stop: 03/22/23 19:32 Tranexamic Acid (Tranexamic 1,000 Mg/100ml-Nacl) 1,000 mg in 100 mls @ 600 mls/ hr IV .ONCE PRN PRN Reason: EBL >1200mL and within 3hr Stop: 03/22/23 19:32 Lactated Ringer's (Lr) 1,000 mls @ 100 mls/hr IV .Q10H [facility] Last Admin: 03/17/23 21:28 Dose: 100 mls/hr Ampicillin Sodium 1 gm/ Sodium (Chloride) 100 mls @ 200 mls/hr IV Q4H [facility] Lidocaine HCl (Lidocaine 1% 20 Ml Mdv) 20 ml ID .ONCE PRN PRN Reason: PERINEAL REPAIR Stop: 03/22/23 19:32 Methylergonovine Maleate (Methylergonovine 0.2 Mg/Ml Vial) 0.2 mg IM .ONCE PRN PRN Reason: Step 2: Hemorrhage protocol Stop: 03/22/23 19:32 Misoprostol (Misoprostol 200 Mcg Tablet) 800 mcg BC .ONCE PRN PRN Reason: Step 3: Hemorrhage protocol Stop: 03/22/23 19:32 Oxytocin (Oxytocin 10 Unit/Ml Vial) 10 unit IM .ONCE PRN PRN Reason: Step one: If no IV access Stop: 03/22/23 19:32 Sertraline HCl (Sertraline 50 Mg Tablet) 100 mg PO HS [facility] Last Admin: 03/17/23 22:52 Dose: 100 mg Sodium Chloride (Sodium Chloride Flush 0.9% 10 Ml Syringe) 10 ml IVP 0100,0900,1700 [facility] Sodium Chloride (Sodium Chloride Flush 0.9% 10 Ml Syringe) 10 ml IVP PRN PRN PRN Reason: NEEDED PER PROVIDER ORDERS Last Admin: 03/17/23 22:59 Dose: 10 ml Albuterol Sulf [Ventolin Hfa Inhaler] 2 puffs INH Q4H PRN 07/17/17 DULoxetine [Cymbalta] 20 mg PO DAILY 08/22/20 Norgestimate-Ethinyl Estradiol [Rxz-Zl-Ovbybnvb Tablet] 1 each PO DAILY 08/22/20 Allergies/Adverse Reactions: Allergies Allergy/AdvReac Type Severity Reaction Status Date / Time amoxicillin [Amoxicillin] Allergy Hives Verified 09/17/20 19:14 Anes History & Medical History - Anesthetic History Anesthesia Complications: reports: No previous complications Family history of Anesthesia Complications: Denies Family history of Malignant Hyperthermia: Denies - Medical History Cardiovascular: reports: None Pulmonary: reports: Asthma Smoking Status: Never smoker - Obstetrical History : 2 Parity: 1 Events: reports: None Complications: reports: None Exam General: Alert, Oriented x3, Cooperative Dental: WNL Mouth Openin Fingerbreadth Neck Mobility: Normal Mallampati classification: II Thyromental Distance: 4-6 cm Respiratory: Lungs clear Cardiovascular: Regular rate Plan Anesthesia Type: Epidural Consent for Procedure(s) Verified and Reviewed: Yes Code Status: Attempt Resuscitation ASA classification: 3-Severe systemic disease Is this case an emergency?: No
[2023-03-18] MEDS ORDERED: ROPIVACAINE 0.2% 200 MG/100 ML BAG EP PRN (00:30)
[2023-03-18] MEDS ORDERED: ePHEDrine 50 MG/ML VIAL IVP PRN (00:30)
[2023-03-18] MEDS ORDERED: diphenhydrAMINE INJ 50 MG/ML VIAL IVP PRN (00:30)
[2023-03-18] MEDS ORDERED: LACTATED RINGERS 500 ML IV ONE (00:30)
[2023-03-18] MEDS ORDERED: NALOXONE 0.4 MG/ML VIAL IVP PRN (00:30)
[2023-03-18] MEDS ORDERED: METOCLOPRAMIDE 10 MG/2 ML VIAL IVP PRN (00:30)
[2023-03-18] MEDS ORDERED: NALBUPHINE 10 MG/ML AMP IVP PRN (00:30)
[2023-03-18] MEDS ORDERED: ONDANSETRON 4 MG/2 ML VIAL IVP PRN (00:30)
[2023-03-18] MEDS ORDERED: SODIUM CHLORIDE FLUSH 0.9% 10 ML SYRINGE IVP SCH (01:00)
[2023-03-18] MEDS: AMPICILLIN 1 GM in SODIUM CHLORIDE 0.9% MINIBAG 100 ML IV SCH ×4 (04:56→14:12)
[2023-03-18] MEDS ORDERED: OXYTOCIN/SODIUM CHLORIDE 500 ML IV SCH (06:45)
--- NOTE | 2023-03-18 09:19 | PROVIDER PROGRESS NOTE ---
Labor Progress Note - Uterine Monitoring Uterine Monitoring Mode: positive: External toco Contraction Frequency (min/apart): intermittent Contraction Intensity: positive: Mild Uterine Resting Tone: positive: Soft - Monitoring Monitor Mode: positive: External ultrasound Heart Rate Baseline: 130s Heart Rate Variability: positive: Moderate (6-25 bmp) Accelerations: positive: Present, 15x15 Decelerations: positive: None Strip Review: positive: Category I - Labor Progress Note Labor Progress Note/Additional Text: S: Breathing through contractions. She was able to get some rest last night but they had a somewhat difficult time keeping the baby on the heart rate monitor so she felt disrupted quite a bit of the night. She is feeling like she may be getting close to wanting an epidural. She denies headache, visual disturbances, RUQ or epigastric pain. Her and mom are supportive at the bedside. O: FHR baseline 130s, moderate variability, + accels, no decels Contractions palpate mild intermittently with soft resting tone SVE deferred AROM x 12 hours A: 27yo @ 38.6wks gestation by LMP c/w 9.6wk U/S Pre-eclampsia without severe features Early labor GBS positive FHR Category I P: Continue pitocin for induction of labor with titration per protocol. Repeat CBC and CMP now. Continue ampicillin for GBS prophylaxis per protocol. Continuos monitoring. Jacuzzi PRN. Nitrous oxide PRN. Epidural per maternal request. Anticipate .
[2023-03-18 09:32] LABS: HCT - HEMATOCRIT 36.9 % (37.0-47.0); HGB - HEMOGLOBIN 12.4 g/dL (12.0-16.0); MEAN CORPUSCULAR HEMOGLOBIN 29.2 pg (27.0-31.0); MEAN CORPUSCULAR HGB CONC 33.6 g/dL (32.0-36.0); MEAN PLATELET VOLUME 11.8 fL (7.9-10.8); RED BLOOD COUNT 4.24 10^6/uL (4.20-5.40); RED CELL DISTRIBUTION WIDTH 13.6 % (12.0-15.0); WHITE BLOOD COUNT 15.1 x10^3/uL (4.8-10.8)
[2023-03-18 09:51] LABS: ALBUMIN 3.5 g/dL (3.2-5.5); BILIRUBIN,TOTAL 0.4 mg/dL (0.2-1.0); CALCIUM 9.1 mg/dL (8.5-10.3); POTASSIUM 4.5 mmol/L (3.5-4.5); TOTAL PROTEIN 6.9 g/dL (6.4-8.9)
[2023-03-18] MEDS ORDERED: LIDOCAINE 2%-EPI 1:100000 20 ML MDV ONE (10:52)
[2023-03-18] MEDS: LACTATED RINGERS 1,000 ML IV SCH (14:16)
[2023-03-18] MEDS ORDERED: HYDROCORTISONE 1% CREAM 28 GM TUBE PR PRN (16:42)
[2023-03-18] MEDS ORDERED: WITCH HAZEL/GLYCERIN 1 PAD TOP PRN (16:42)
--- NOTE | 2023-03-18 16:54 | DELIVERY NOTE ---
Delivery Note - Labor Labor: positive: Induced by ARM, Induced by oxytocin - Infant Delivery Method Delivery Method: positive: Spontaneous vaginal delivery - Presentation Presentation: positive: Vertex, JAYA - left occiput anterior - Nuchal Cord Nuchal Cord: positive: None - Amniotic Fluid Description Amniotic Fluid Description: positive: Clear - Laceration Laceration: positive: Other - Suture Suture Type: positive: Vicryl Suture Size: positive: 4-0 - Delivery Outcome Delivery Outcome: positive: Livebirth - : positive: Placed in direct skin contact with mother, Bulb syringe, Stimulated, Warmed, [place] used [place] sex: positive: Male - Cord Cord: positive: 3 vessels - Placenta Placenta: positive: Intact, Spontaneous - Estimated Blood Loss Estimated Blood Loss (in cc): 150 - Post Delivery Events Post Delivery Events: positive: No post delivery events - Delivery Comments (Free Text/Narrative) Delivery Comments (Free Text/Narrative): Labor: This 27yo @ 38.6wks gestation by LMP c/w 9.6wk U/S presented to [facility] on 03/17/2023 for medical induction of labor secondary to preeclampsia without severe features. Cervix was 4/70/-3 and vertex with intact membranes. AROM occurred on 03/17/2023 @ 2040 and was noted to be a small amount of clear fluid. She was expectantly managed over night with initiation of pitocin for induction of labor on 03/18/2023 @ 0715 with a maximum infusion rate of 9mU/mL. FHR pattern demonstrated a Category I pattern throughout labor. Her blood pressures remained mildly elevated intermittently and she persistently denied headache, visual disturbances, RUQ or epigastric pain. An epidural was placed per maternal request. Pt progressed to c/c/0 at 1509 with onset of active pushing @ 1545. : Normal SVB of viable male infant on 03/18/2023 @ 1618. No nuchal cord. The was placed on maternal abdomen, stimulated, dried, and placed skin to skin. Apgars were 8/9 at 1 and 5 minutes respectively. Pitocin administered via IV for hemostasis. The umbilical cord was allowed to stop pulsating at which time it was doubly clamped by CNM and cut by FOB. Cord blood was obtained. 3VC. Fundal massage and gentle cord traction applied for active management of the third stage. Placenta delivered spontaneously and intact @ 1625. EBL 150mL. Fourth stage: Uterine fundus firm and there is no excessive bleeding. The perineum, vagina, and cervix were inspected and found to be intact however there was noted to be a 1st degree periclitoral laceration approximately 1cm in length and bleeding that was repaired using a 4-[address]-1 needle in standard fashion under sterile conditions. Tissues well approximated. Skin to skin contact initiated. Family bonding well. Both mother and baby were left in stable condition.
[2023-03-18] MEDS: IBUPROFEN 800 MG TABLET PO SCH (18:06)
[2023-03-18] MEDS: ACETAMINOPHEN 500 MG TABLET PO SCH (18:07)
[2023-03-19] MEDS: IBUPROFEN 800 MG TABLET PO SCH ×3 (00:18→17:15)
[2023-03-19] MEDS ORDERED: MAGNESIUM SULFATE IV ONE (02:06)
[2023-03-19] MEDS: ACETAMINOPHEN 500 MG TABLET PO SCH ×3 (02:14→20:52)
[2023-03-19] MEDS: DOCUSATE SODIUM 100 MG CAPSULE PO SCH ×2 (12:22→17:17)
--- NOTE | 2023-03-19 13:54 | PROVIDER PROGRESS NOTE ---
Subjective - Subjective Subjective: S: with some difficulty initially but this has been improving. She is bonding well with her baby. Her bleeding is decreased and is light. Her pain is well controlled with oral medications. She is urinating without difficulty. Her mood is good and she was able to get some rest last night/early this morning. Her [place] is supportive at the bedside. O: Heart RRR w/o M/G/R, lungs CTAB, abdomen soft and nontender with fundus at U, perineum intact, light lochia rubra, bilateral LE's no edema. A: 27yo -->P2 PPD#1 s/p TSVB viable male Normal recovery P: Continue routine care and medications. Evaluate for discharge home tomorrow. Objective - Vital Signs/Intake & Output Vital Signs: Vital Signs x48h Temp Pulse Resp BP Pulse Ox 03/19/23 11:51 36.8 C 57 L 18 119/73 99 03/19/23 08:14 36.1 C L 63 20 113/76 99 Intake & Output: Intake & Output 03/16/23 03/17/23 03/18/23 03/19/23 23:59 23:59 23:59 23:59 Intake Total 3755.000 Output Total 1815 Balance 1940.000 - Lab Results Fish Bones: 03/18/23 09:26 03/18/23 09:26
[2023-03-19] MEDS: SERTRALINE 50 MG TABLET PO SCH (20:52)
[2023-03-20] MEDS: IBUPROFEN 800 MG TABLET PO SCH ×2 (02:06→10:51)
[2023-03-20 08:50] VITALS: BP 117/66; O2SAT 98
--- NOTE | 2023-03-20 10:26 | Discharge Plan ---
Discharge Plan Problem Reviewed?: Yes Disposition: Home, Self Care Condition: Good Diet: Regular Activity Restrictions: No Restrictions Shower Restrictions: No Driving Restrictions: No Weight Bearing: Full Weight Instruction Topics: Vaginal After, Self Care, Breastfeed Holds No Smoking: If you smoke, Please STOP! Call for help. Follow-up with: Twila Montenegro CNM, [facility] [Provider Admit Priv/Credential] - 1 Week
--- NOTE | 2023-03-20 10:28 | DISCHARGE SUMMARY ---
Discharge Summary Condition at Discharge: Good Discharge Disposition: 01 Home, Self Care - HOSPITAL COURSE Hospital Course: Date of Admission: 03/17/2023 Date of Discharge: 03/20/2023 Diagnosis on Admission: 1. 27yo @ 38.5wks gestation by LMP c/w 9.6wk U/S 2. Pre-eclampsia without severe features 3. GBS positive 4. FHR Category I Diagnosis on Discharge: 1. 27yo PPD#2 s/p TSVB viable male 2. 3. Normal recovery Brief History: She is a [facility] [place] who presented on 03/17/2023 for medical induction of labor secondary to pre-eclampsia without severe features. AROM and pitocin were initiated for induction of labor with a maximum infusion rate of pitocin at 9mU/mL. Epidural was placed per maternal request. She prog ressed to spontaneously deliver a viable male infant on 03/18/2023 @ 1618 over intact perineum. Apgars were 8/9 at 1 and 5 minutes respectively. EBL 150mL. She was noted to have a 1st degree periclitoral laceration which was repaired with a 4-o vicryl in standard fashion and under sterile conditions. Her blood pressure remained only mildly elevated throughout her labor course. She has been doing well in her course. She is ambulating and tolerating a regular diet. She is urinating without difficulty and her lochia is normal. Her pain is well controlled with oral medications. Her blood pressures have remained within normal limits throughout her course. She will be discharged home today on day #2 with instructions to continue taking her vitamin while and to continue taking ibuprofen and tylenol over the counter as needed for pain management. She has been given precautions to call if she has any worsening fevers, chills, abdominal pain, increased vaginal bleeding or foul smelling vaginal lochia. In addition we closely reviewed the warning signs and symptoms of pre-eclampsia and she has a home blood pressure cuff which she will continue to use to monitor her blood pressure at home 3-4 times daily and guidelines for when to call were reviewed. Physical exam: Normocephalic, atraumatic. Heart RRR w/o M/G/R, lungs CTAB, abdomen soft and nontender with fundus firm at U-1, perineum intact, light lochia rubra, bilateral LE's no edema. Mood is good. - ALLERGIES Allergies/Adverse Reactions: Allergies Allergy/AdvReac Type Severity Reaction Status Date / Time amoxicillin [Amoxicillin] Allergy Hives Verified 09/17/20 19:14 - MEDICATIONS Home Medications: Ambulatory Orders Medication Instructions Recorded Confirmed Albuterol Sulf [Ventolin Hfa 2 puffs INH Q4H PRN 07/17/17 09/17/20 Inhaler] DULoxetine [Cymbalta] 20 mg PO DAILY 08/22/20 09/17/20 Norgestimate-Ethinyl Estradiol 1 each PO DAILY 08/22/20 09/17/20 [Fts-Kl-Dobixhdg Tablet] Ondansetron Odt [Zofran] 4 mg TL Q6H PRN #20 tablet 08/22/20 09/17/20 Ondansetron Odt [Zofran] 4 mg TL Q6H PRN #30 tablet 09/18/20 - LABS Result Diagrams: 03/18/23 09:26 03/18/23 09:26
[2023-03-20] MEDS: ACETAMINOPHEN 500 MG TABLET PO SCH (10:51)
--- NOTE | 2023-03-20 11:25 | Labor Flowsheet ---
Labor Flowsheet Datetime Report Generated by CPN: 03/20/2023 11:25 Datetime: 03/20/2023 08:36 VITAL SIGNS NBP Sys/Pebbles/Mean (mmHg): 117 : 66 : 77 Pulse: 74 Datetime: 03/19/2023 17:00 MATERNAL ASSESSMENT Level of Consciousness: Alert DTR's/Clonus: DTRs 2+ Headache: Denies Breath Sounds, Left: Clear and Equal Breath Sounds, Right: Clear and Equal Nausea/Vomiting: Denies RUQ Epigastric Pain: Denies Datetime: 03/18/2023 18:59 Communication Comments: PT c/o headache Datetime: 03/18/2023 17:30 Temperature (C): 37.1 Datetime: 03/18/2023 17:20 Stage of : Recovery Datetime: 03/18/2023 16:41 Anesthesia Comments: DIANA completed Datetime: 03/18/2023 16:25 MEDICATIONS Pitocin (milliunits): Started @ 999 Datetime: 03/18/2023 16:23 Membranes Ruptured Date/Time: 03/17/2023 20:40 Datetime: 03/18/2023 16:18 UTERINE ACTIVITY Monitor Mode: Palpation Quality: Strong Contraction Comments: mom pushing while babe Comments: Datetime: 03/18/2023 16:15 Frequency (min): 2-3 Duration (sec): unableto determine while pushing Resting Tone (Palpate): Relaxed Pitocin Checklist: At Least 1 Acceleration of 15 bpm x 15 Seconds in 30 Minutes or Adequate Variabi lity; No More than 1 Late Deceleration Occurred in Past 30 Minutes; No More than 2 Variable Decelerat ions > 60 Seconds in Duration and decreasing >60 bpm in 30 minutes; No More than 5 Uterine Contractio ns in 10 Minutes for any 20 Minute Interval; Uterus Palpates Soft between Contractions ASSESSMENT A Monitor Mode: Telemetry FHR Baseline Rate : 145 Variability: Moderate 6-25 bpm Accelerations: 15X15 Decelerations: Variable Category: Category II LaborFlag: Labor Datetime: 03/18/2023 15:47 Patient Care Comments: start pushing Datetime: 03/18/2023 15:46 I/O Interventions: [place] Discontinued Datetime: 03/18/2023 15:45 Pattern: Normal: <= 5 Contractions in 10 Minutes Datetime: 03/18/2023 15:23 Patient Position/Activity: Semi-Fowlers Datetime: 03/18/2023 15:14 Respirations: 22 Datetime: 03/18/2023 15:09 VAGINAL EXAM Dilatation (cm): 10.0 Effacement (%): 100 Station: 0 Exam by: Jovanna Gudino, RN Cervix, Consistency: Soft Cervix, Position: Midposition Datetime: 03/18/2023 14:22 Monitor Interventions for UA: [place] Adjusted Datetime: 03/18/2023 14:12 Antibiotics: Ampicillin IV 1 Gm Datetime: 03/18/2023 13:49 SpO2 (%): 100 Datetime: 03/18/2023 13:12 PATIENT CARE IV/Blood Work: IV Bolus Started Datetime: 03/18/2023 12:45 PAIN Pain Scale: 4 Pain Presence: Intermittent Pain Type: Cramping Pain Location: Abdomen Pain Goal: 3 Pain Relief Measures: CONCESSIONS MANAGER Use Datetime: 03/18/2023 12:26 Vaginal Bleeding: Normal Show Datetime: 03/18/2023 11:32 Epidural Procedure: Loading Dose Datetime: 03/18/2023 11:10 COMMUNICATION Communication: RN at Bedside Datetime: 03/18/2023 11:05 PROCEDURE TIME OUT Procedure Verify: Correct Patient Identity; Correct Side and Site are Marked; Accurate Procedure Co nsent Form; Agreement on Procedure to be Done; Correct Patient Position; Safety Precautions Based on Patient History or Medication Use ANESTHESIA Epidural Positioning: Sitting Datetime: 03/18/2023 10:15 Monitor Interventions for FHR: Ultrasound Adjusted Datetime: 03/18/2023 07:25 Temperature Route: Oral Datetime: 03/18/2023 07:00 FHR Baseline Changes: No Baseline Change Datetime: 03/18/2023 03:00 Amniotic Fluid Color: Clear Amniotic Fluid Amount: Scant Datetime: 03/17/2023 23:58 Hygiene: Peripad Changed Datetime: 03/17/2023 20:46 Membrane Status: Ruptured Membranes Rupture Method: Artificial Amniotic Fluid Odor: Normal Membrane Comments: AROM by Oxana Montenegro CNM
--- NOTE | 2023-03-21 09:31 | Labor Flowsheet ---
Labor Flowsheet Datetime Report Generated by CPN: 03/21/2023 09:30 Datetime: 03/20/2023 08:36 VITAL SIGNS NBP Sys/Pebbles/Mean (mmHg): 117 : 66 : 77 Pulse: 74 Datetime: 03/19/2023 17:00 MATERNAL ASSESSMENT Level of Consciousness: Alert DTR's/Clonus: DTRs 2+ Headache: Denies Breath Sounds, Left: Clear and Equal Breath Sounds, Right: Clear and Equal Nausea/Vomiting: Denies RUQ Epigastric Pain: Denies Datetime: 03/18/2023 18:59 Communication Comments: PT c/o headache Datetime: 03/18/2023 17:30 Temperature (C): 37.1 Datetime: 03/18/2023 17:20 Stage of : Recovery Datetime: 03/18/2023 16:41 Anesthesia Comments: DIANA completed Datetime: 03/18/2023 16:25 MEDICATIONS Pitocin (milliunits): Started @ 999 Datetime: 03/18/2023 16:23 Membranes Ruptured Date/Time: 03/17/2023 20:40 Datetime: 03/18/2023 16:18 UTERINE ACTIVITY Monitor Mode: Palpation Quality: Strong Contraction Comments: mom pushing while babe Comments: Datetime: 03/18/2023 16:15 Frequency (min): 2-3 Duration (sec): unableto determine while pushing Resting Tone (Palpate): Relaxed Pitocin Checklist: At Least 1 Acceleration of 15 bpm x 15 Seconds in 30 Minutes or Adequate Variabi lity; No More than 1 Late Deceleration Occurred in Past 30 Minutes; No More than 2 Variable Decelerat ions > 60 Seconds in Duration and decreasing >60 bpm in 30 minutes; No More than 5 Uterine Contractio ns in 10 Minutes for any 20 Minute Interval; Uterus Palpates Soft between Contractions ASSESSMENT A Monitor Mode: Telemetry FHR Baseline Rate : 145 Variability: Moderate 6-25 bpm Accelerations: 15X15 Decelerations: Variable Category: Category II LaborFlag: Labor Datetime: 03/18/2023 15:47 Patient Care Comments: start pushing Datetime: 03/18/2023 15:46 I/O Interventions: [place] Discontinued Datetime: 03/18/2023 15:45 Pattern: Normal: <= 5 Contractions in 10 Minutes Datetime: 03/18/2023 15:23 Patient Position/Activity: Semi-Fowlers Datetime: 03/18/2023 15:14 Respirations: 22 Datetime: 03/18/2023 15:09 VAGINAL EXAM Dilatation (cm): 10.0 Effacement (%): 100 Station: 0 Exam by: Jovanna Gudino, RN Cervix, Consistency: Soft Cervix, Position: Midposition Datetime: 03/18/2023 14:22 Monitor Interventions for UA: [place] Adjusted Datetime: 03/18/2023 14:12 Antibiotics: Ampicillin IV 1 Gm Datetime: 03/18/2023 13:49 SpO2 (%): 100 Datetime: 03/18/2023 13:12 PATIENT CARE IV/Blood Work: IV Bolus Started Datetime: 03/18/2023 12:45 PAIN Pain Scale: 4 Pain Presence: Intermittent Pain Type: Cramping Pain Location: Abdomen Pain Goal: 3 Pain Relief Measures: CLINICAL OPERATIONS MANAGER Use Datetime: 03/18/2023 12:26 Vaginal Bleeding: Normal Show Datetime: 03/18/2023 11:32 Epidural Procedure: Loading Dose Datetime: 03/18/2023 11:10 COMMUNICATION Communication: RN at Bedside Datetime: 03/18/2023 11:05 PROCEDURE TIME OUT Procedure Verify: Correct Patient Identity; Correct Side and Site are Marked; Accurate Procedure Co nsent Form; Agreement on Procedure to be Done; Correct Patient Position; Safety Precautions Based on Patient History or Medication Use ANESTHESIA Epidural Positioning: Sitting Datetime: 03/18/2023 10:15 Monitor Interventions for FHR: Ultrasound Adjusted Datetime: 03/18/2023 07:25 Temperature Route: Oral Datetime: 03/18/2023 07:00 FHR Baseline Changes: No Baseline Change Datetime: 03/18/2023 03:00 Amniotic Fluid Color: Clear Amniotic Fluid Amount: Scant Datetime: 03/17/2023 23:58 Hygiene: Peripad Changed Datetime: 03/17/2023 20:46 Membrane Status: Ruptured Membranes Rupture Method: Artificial Amniotic Fluid Odor: Normal Membrane Comments: AROM by Oxana Montenegro CNM
== END 2023-03-20 11:24 | disposition home or self-care (01) | DRG 807 ==
LOC: WFO 19:11 → FBP 19:13 → WFO 19:28 → FBP 19:29
PROVIDERS: ADMIT Nurse Practitioner Obstetrics & Gynecology; ATTEND Nurse Practitioner Obstetrics & Gynecology
PROC: 3E033VJ Introduction of Other Hormone into Peripheral Vein, Percutaneous Approach (ICD-10-PCS; principal; 2023-03-17)
PROC: 10907ZC Drainage of Amniotic Fluid, Therapeutic from Products of Conception, Via Natural or Artificial Opening (ICD-10-PCS; 2023-03-17)
PROC: 10E0XZZ Delivery of Products of Conception, External Approach (ICD-10-PCS; 2023-03-18)
PROC: 0UQMXZZ Repair Vulva, External Approach (ICD-10-PCS; 2023-03-18)
DX: O14.04 Mild to moderate pre-eclampsia, complicating childbirth (principal); Z37.0 Single live birth; Z3A.38 38 weeks gestation of pregnancy; O99.824 Streptococcus B carrier state complicating childbirth; O70.0 First degree perineal laceration during delivery; Z79.899 Other long term (current) drug therapy; O99.214 Obesity complicating childbirth; O99.344 Other mental disorders complicating childbirth; F32.A Depression, unspecified; F41.9 Anxiety disorder, unspecified
CPT/HCPCS: 36415; 59409; 80053; 85025; 85027; 86850; 86900; 86901; A9270; J7120; J3475